=== PATIENT | female | born 1945 | race Caucasian/White ===

== ENCOUNTER 2020-03-10 16:06 | Emergency (ER) | payer MEDICARE, SELFPAY ==
--- NOTE | ~2020-03-10 | XR_ITS ---
EXAMINATION: XR chest 1V portable INDICATION: Numbness of the bilateral extremities TECHNIQUE: Portable AP chest at 1729 hours COMPARISON: 05/24/2019 FINDINGS: The lungs are free of acute opacities. There is no pleural effusion or pneumothorax. The ca rdiomediastinal silhouette is normal. IMPRESSION: 1. No acute cardiopulmonary abnormality. Reviewed, dictated and finalized at location A.
--- NOTE | ~2020-03-10 | CT_ITS ---
EXAMINATION: CT brain wo con INDICATION: Numbness and tingling of the extremities COMPARISON: 05/10/2018 TECHNIQUE: Standard unenhanced head CT. The dose-length product (DLP) was 605.33 mGy-cm. The mA was a djusted according to patient size. Iterative reconstruction technique was employed. FINDINGS: There is no acute intraparenchymal hemorrhage. No evidence of mass lesion. No evidence of a cute infarction. There is mild periventricular and subcortical hypodensity probably related to small vessel ischemic disease. There is mild prominence of the sulci and ventricles related to cerebral atr ophy. Intracranial calcified cerebral atherosclerosis is noted. There are no extra-axial collections. There is no mass effect or midline shift. The orbits and soft tissues are unremarkable. The visuali zed sinuses and mastoid air cells are well aerated. IMPRESSION: 1. No acute intracranial abnormality. 2. Age related findings. Reviewed, dictated and finalized at location A.
[2020-03-10 16:19] VITALS: BP 125/65; PULSE 84; RESP 16; TEMP 36.8; O2SAT 100
--- NOTE | 2020-03-10 16:24 | ECG_ITS ---
Measurements Intervals [place] Rate: 66 P: 22 WI: 171 QRS: 111 QRSD: 130 T: 30 QT: 458 QTc: 481 Interpretive Statements SINUS RHYTHM RIGHT AXIS DEVIATION RIGHT BUNDLE BRANCH BLOCK ABNORMAL ECG Electronically Signed On 03-11-2020 6:38:15 CDT by Ramiro Heath D.O.
[2020-03-10 16:39] LABS: Basophils Percent Auto 0.4 % (0.2-1.2); Eosinophils Absolute Auto 0.2 K/mm3 (0-0.3); Eosinophils Percent Auto 2.7 % (0-4.4); Hematocrit 33.8 % (37.0-47.0); Hemoglobin 11.1 g/dL (12.0-15.0); Immature Granulocyte Absolute 0.02 K/mm3 (0.00-0.031); Immature Granulocyte Percent A 0.4 % (0-0.5); Lymphocytes Absolute Auto 0.96 K/mm3 (0.9-3.2); Lymphocytes Percent Auto 17.4 % (18.3-44.2); Mean Corpuscular HGB Conc 32.8 g/dl (32-36); Mean Corpuscular Hemoglobin 32.1 pg (26-34); Mean Corpuscular Volume 97.7 fl (80-100); Mean Platelet Volume 9.4 fl (7.4-10.4); Monocytes Absolute Auto 0.6 K/mm3 (0.1-0.6); Monocytes Percent Auto 10.9 % (2.6-8.5); Neutrophils Absolute Auto 3.8 K/mm3 (1.3-6.7); Neutrophils Percent Auto 68.2 % (45.5-73.1); Platelet Count Result 285 k/mm3 (150-375); Red Blood Count 3.46 M/mm3 (4.2-5.4); Red Cell Distribution Width 14.4 % (11.5-14.5); White Blood Count 5.5 K/mm3 (4.5-10.0)
[2020-03-10 16:50] LABS: Partial Thromboplastin Time 27.2 SECONDS (22.3-36.8)
[2020-03-10 16:53] LABS: Anion Gap 8 mmol/L (8-16); Blood Urea Nitrogen 17 mg/dL (7-17); Calcium 5.9 mg/dL (8.4-10.2); Carbon Dioxide 29 mmol/L (22-30); Chloride 102 mmol/L (98-107); Estimated CRCL calculation 29 ml/min; Estimated Glomerular Filt Rate 29; Glucose 150 mg/dL (65-105); Potassium 4.5 mmol/L (3.4-5.0); Sodium 139 mmol/L (137-145)
[2020-03-10 17:05] LABS: Troponin I < 0.012 ng/mL (0.000-0.034)
[2020-03-10 19:29] VITALS: BP 135/70; PULSE 77; RESP 18; O2SAT 98
[2020-03-10 19:30] VITALS: BP 135/70; PULSE 86; RESP 18; O2SAT 97
--- NOTE | 2020-03-10 19:44 | ED.NEUROSD ---
HPI - Neuro Symptoms/Deficit General Chief Complaint: Neuro Symptoms/Deficit Stated Complaint: tingling in arms and legs since yesterday Time Seen by Provider: 03/10/20 19:17 History of Present Illness HPI Narrative: Patient is a 74-year-old female who presents ER with numbness and tingling. Patient has been having numbness and hzql-fjg-[id number] sensation to her arms and legs as well as numb intermittently her back for the last 2 days. Constantly patient had a injection for osteoporosis to increase calcium absorption 4 days ago. Patient has had no focal weakness or spasms. Symptoms are worse when she sits down. She is found no alleviating factors. She does take calcium supplementation. No fevers or chills or sweats. No slurred speech. Related Data Home Medications Medication Instructions Recorded Confirmed amlodipine 5 mg tablet 5 mg PO DAILY 06/04/19 08/10/19 atorvastatin 10 mg tablet 10 mg PO DAILY 06/04/19 08/10/19 levothyroxine 112 mcg tablet 112 mcg PO DAILY 06/04/19 08/10/19 metformin 500 mg tablet 500 mg PO DAILY 06/04/19 08/10/19 Allergies Allergy/AdvReac Type Severity Reaction Status Date / Time propoxyphene Allergy Mild FLU LIKE Verified 08/10/19 11:11 SYMPTOMS sulfamethizole Allergy Unknown Rash Verified 08/10/19 11:11 trimethoprim Allergy Unknown Rash Verified 08/10/19 11:11 Review of Systems Review of Systems: All systems reviewed & are unremarkable except as noted in HPI and below Constitutional: Constitutional: Denies chills, Denies fever(s) and Denies weakness ENT: Denies nasal congestion and Denies sore throat Cardiovascular: Cardiovascular: Denies chest pain and Denies radiating jaw, neck or arm pain Respiratory: Respiratory: Denies cough and Denies dyspnea Gastrointestinal: Gastrointestinal: Denies abdominal pain, Denies nausea and Denies vomiting Neurologic: Denies dizziness, Denies headache(s), Denies focal weakness and Reports numbness PMF Past Medical History Medical History (Updated 03/10/20 @ 21:47 by Zbigniew Farmer MD) Anemia, unspecified Arm fracture Arthritis Chronic back pain Chronic kidney disease with symptom management only, stage 3 (moderate) DDD (degenerative disc disease) Ductal carcinoma in situ (DCIS) of right breast Gastrostomy in place GERD (gastroesophageal reflux disease) HTN (hypertension) Hypothyroid Left-sided chest wall pain Malignant neoplasm of lower-outer quadrant of left breast of female, estrogen receptor negative Ovarian cyst Pancreatitis Pericarditis Post-menopausal Postoperative hypothyroidism Primary osteoarthritis involving multiple joints Thrombocytosis Thyroid cancer Type 2 diabetes mellitus without complication, without long-term current use of insulin Surgical History Surgical History (Updated 03/05/20 @ 16:07 by Nisha Glover APN-C) H/O local excision of skin lesion H/O total thyroidectomy History of arthroscopic knee surgery Bilateral History of bunionectomy of both great toes History of cholecystectomy History of partial hysterectomy Previous back surgery Social History Social History (Updated 08/10/19 @ 11:13 by Therese Leong) Smoking status: Never smoker Second hand tobacco smoke exposure: No Alcohol intake: never Substance use: never Substance use type: does not use Gender identity (if verbalized by the patient): Female Exam Narrative: Exam Narrative: GENERAL: Well-appearing, well-nourished, and in no acute distress. HEAD: Normocephalic, atraumatic. CHEST: Clear to auscultation. No respiratory distress. HEART: Regular rate and rhythm. Normal peripheral pulses. ABDOMEN: Soft, nontender, nondistended. EXTREMITIES: Normal range of motion. No edema. SKIN: Warm, dry, no rash. NEURO: No focal sensory deficits. Alert and oriented x3. PSYCH: Normal mood and affect. Course Course Emergency Course: Patient's tingling has resolved after receiving IV calcium gluconate. Patient will follow-up
[2020-03-10] MEDS: CALCIUM GLUCONATE 1,000 MG/10 ML VIAL 1000 MG IV PUSH (19:47)
--- NOTE | 2020-03-10 20:53 | PC.NURSE ---
pt resting on stretcher in NAD at this time. all questions/concerns addressed. vSS, rr even and unlabored. will continue to monitor pt for baseline status changes.
[2020-03-10 20:55] VITALS: BP 130/70; PULSE 72; RESP 18; O2SAT 99
[2020-03-10 22:52] VITALS: BP 124/70; PULSE 72; RESP 20; O2SAT 100
[2020-03-11 06:13] LABS: Glucose Point of Care 147 (65-105)
== END 2020-03-10 22:53 | disposition home or self-care (01) ==
PROVIDERS: Emergency Medicine; Emergency Provider Emergency Medicine; PCP Family Medicine
DX: E83.51 Hypocalcemia (principal); R20.2 Paresthesia of skin; D64.9 Anemia, unspecified; M19.90 Unspecified osteoarthritis, unspecified site; E11.22 Type 2 diabetes mellitus with diabetic chronic kidney disease; I12.9 Hypertensive chronic kidney disease with stage 1 through stage 4 chronic kidney disease, or unspecified chronic kidney disease; N18.30 Chronic kidney disease, stage 3 unspecified; Z79.84 Long term (current) use of oral hypoglycemic drugs; K21.9 Gastro-esophageal reflux disease without esophagitis; Z85.3 Personal history of malignant neoplasm of breast; E89.0 Postprocedural hypothyroidism; Z85.850 Personal history of malignant neoplasm of thyroid; I45.10 Unspecified right bundle-branch block
CPT/HCPCS: 36415; 70450; 71045; 80048; 82948; 84484; 85025; 85610; 85730; 93005; 96374; 99284; J0610

== ENCOUNTER → 2020-06-19 07:59 | Outpatient (CLI) | payer MEDICARE, SELFPAY ==
--- NOTE | ~2020-06-19 | XR_ITS ---
EXAMINATION:XR_[id number]_CR DATE: 06/19/2020 08:16 INDICATION: Neck pain TECHNIQUE: AP, lateral, lateral swimmers and odontoid views of the cervical spine are provided. COMPARISON: None FINDINGS: The bones are osteopenic which limits sensitivity for fracture although none is seen. The o dontoid is intact. The vertebral body heights are maintained. There is severe loss of intervertebral disc space height at C5-6 and C6-7. There is severe multilevel facet and uncovertebral joint osteoart hritis. Prevertebral soft tissues are normal. IMPRESSION: 1. Severe cervical spondylosis without acute findings, sensitivity limited by osteopenia. Reviewed, dictated and finalized at location A. 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 Severe cervical spondylosis without acute findings, sensitivity limited by o steopenia.
== END ==
PROVIDERS: PCP Family Medicine; Visit Provider Physician Assistant
DX: M47.892 Other spondylosis, cervical region (principal)
CPT/HCPCS: 72040

== ENCOUNTER → 2020-07-31 15:44 | Outpatient (CLI) | payer MEDICARE, SELFPAY ==
--- NOTE | ~2020-07-31 | XR_ITS ---
EXAMINATION: XR chest 2V EXAM DATE: 07/31/2020 16:01 INDICATION: R05 - Cough . TECHNIQUE: Frontal and lateral projections of the chest obtained and reviewed. Comparison is made to prior examination from 03/10/2020. FINDINGS: Left upper lobe granuloma. The lungs are otherwise clear. There are no pleural effusions. The cardiomediastinal silhouette is within normal limits. There is no pneumothorax suspected. The bones and soft tissues are unremarkable. IMPRESSION: No acute cardiopulmonary findings. Reviewed, dictated and finalized at location B. 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
== END ==
PROVIDERS: PCP Family Medicine; Visit Provider Physician Assistant
DX: R05 Cough (principal)
CPT/HCPCS: 71046

== ENCOUNTER 2021-01-08 00:20 | Day surgery (SDC) | payer MEDICARE, SELFPAY ==
[2020-12-26 13:33] VITALS: BMI 32.3
[2021-01-08 06:51] VITALS: BMI 32.2
[2021-01-08 06:54] VITALS: BP 109/67; PULSE 79; RESP 15; TEMP 35.8; O2SAT 100
[2021-01-08] MEDS: LACTATED RINGERS 1,000 ML 150 ML IV CONT (07:00)
[2021-01-08 07:06] LABS: Glucose Point of Care 99 mg/dl (65-105)
--- NOTE | 2021-01-08 07:11 | PM.HPGS ---
History of Present Illness History of Present Illness Consent: Risks, benefits, and alternatives have been discussed and questions answered. Patient agrees to proceed with procedure. Chief complaint: hx of colon polyps Narrative: Halima Griffith is a 75 year old female referred for colon cancer screening. She does have a history of polyps Review of Systems Review of Systems: All systems reviewed & are unremarkable except as noted in HPI and below PMFSH Past Medical History Medical History Anemia, unspecified Arm fracture Arthritis Chronic back pain Chronic kidney disease with symptom management only, stage 3 (moderate) Chronic kidney disease, stage 3 unspecified DDD (degenerative disc disease) Ductal carcinoma in situ (DCIS) of right breast Gastrostomy in place GERD (gastroesophageal reflux disease) HTN (hypertension) Hypothyroid Left-sided chest wall pain Malignant neoplasm of lower-outer quadrant of left breast of female, estrogen receptor negative Ovarian cyst Pancreatitis Pericarditis Post-menopausal Postoperative hypothyroidism Primary osteoarthritis involving multiple joints Thrombocytosis Thyroid cancer Type 2 diabetes mellitus without complication, without long-term current use of insulin Surgical History Surgical History H/O local excision of skin lesion H/O total thyroidectomy History of arthroscopic knee surgery Bilateral History of bunionectomy of both great toes History of cholecystectomy History of partial hysterectomy Previous back surgery Family History Family History Mother Hypertension Sibling Hypertension Family history of coronary artery disease Father Family history of diabetes mellitus in first degree relative Social History Social History Smoking status: Never smoker Second hand tobacco smoke exposure: No Alcohol intake: never Substance use: never Substance use type: does not use Living arrangements: with family Gender identity (if verbalized by the patient): Female Spiritual care concerns: No Meds Home Medications and Allergies Home Medications Medication Instructions Recorded Confirmed Type atorvastatin 10 mg tablet 10 mg PO DAILY 06/04/19 01/08/21 History levothyroxine 112 mcg tablet 88 mcg PO DAILY 06/04/19 01/08/21 History acyclovir 400 mg tablet 400 mg PO DAILY 03/14/20 01/08/21 History anastrozole 1 mg tablet 1 mg PO DAILY 03/14/20 01/08/21 History biotin 10,000 mcg capsule 10,000 mcg PO DAILY 03/14/20 01/08/21 History cholecalciferol (vitamin D3) 50 50 mcg PO DAILY 03/14/20 01/08/21 History mcg (2,000 unit) capsule folic acid 1 mg tablet 1 mg PO DAILY 03/14/20 01/08/21 History gabapentin 100 mg capsule 100 mg PO TID 03/14/20 01/08/21 History methotrexate sodium 2.5 mg tablet 2.5 mg PO 3XW tablet 03/14/20 01/08/21 History losartan 50 mg tablet 50 mg PO DAILY #90 tablet 11/06/20 01/08/21 Rx calcitriol 0.5 mcg PO DAILY 12/26/20 01/08/21 History calcium carbonate-vitamin D3 1 cap PO TID 12/26/20 01/08/21 History cyanocobalamin (vitamin B-12) 500 mcg PO DAILY 12/26/20 01/08/21 History [Vitamin B-12] ferrous sulfate 325 mg PO DAILY 12/26/20 01/08/21 History multivit with min-folic acid 1 tablet PO DAILY 12/26/20 01/08/21 History [Adult One Daily Multivitamin] Allergies Allergy/AdvReac Type Severity Reaction Status Date / Time propoxyphene Allergy Mild FLU LIKE Verified 01/08/21 06:50 SYMPTOMS sulfamethizole Allergy Unknown Rash Verified 01/08/21 06:50 trimethoprim Allergy Unknown Rash Verified 01/08/21 06:50 Vital Signs Vital Signs - 24 hr 01/08/21 06:54 Temperature 35.8 C L Pulse Rate 79 Respiratory Rate 15 Blood Pressure 109/67 Pulse Oximetry 100 Exam Resp: Auscultation: clear to auscultation bilatera
--- NOTE | 2021-01-08 07:41 | WPDANESEPPF ---
Anes - Initial Pre Proc Eval Procedure: Operation Date: 01/08/21 08:00 Proposed Procedures p Screening Colonoscopy - Al Escobar MD Date/Time: 01/08/21 07:41 Surgeon: Al Escobar MD Pre Op Diagnosis: hx of colon polyps Patient Data Age: 75 Gender: F Height: 1.68 m Weight: 90.5 kg Last Vital Signs Temp 35.8 C L 01/08/21 06:54 Pulse 79 01/08/21 06:54 Resp 15 01/08/21 06:54 BP 109/67 01/08/21 06:54 Pulse Ox 100 01/08/21 06:54 Allergies Allergy/AdvReac Type Severity Reaction Status Date / Time propoxyphene Allergy Mild FLU LIKE Verified 01/08/21 06:50 SYMPTOMS sulfamethizole Allergy Unknown Rash Verified 01/08/21 06:50 trimethoprim Allergy Unknown Rash Verified 01/08/21 06:50 Home Medications Medication Instructions Recorded Confirmed Type atorvastatin 10 mg tablet 10 mg PO DAILY 06/04/19 01/08/21 History levothyroxine 112 mcg tablet 88 mcg PO DAILY 06/04/19 01/08/21 History acyclovir 400 mg tablet 400 mg PO DAILY 03/14/20 01/08/21 History anastrozole 1 mg tablet 1 mg PO DAILY 03/14/20 01/08/21 History biotin 10,000 mcg capsule 10,000 mcg PO DAILY 03/14/20 01/08/21 History cholecalciferol (vitamin D3) 50 50 mcg PO DAILY 03/14/20 01/08/21 History mcg (2,000 unit) capsule folic acid 1 mg tablet 1 mg PO DAILY 03/14/20 01/08/21 History gabapentin 100 mg capsule 100 mg PO TID 03/14/20 01/08/21 History methotrexate sodium 2.5 mg tablet 2.5 mg PO 3XW tablet 03/14/20 01/08/21 History losartan 50 mg tablet 50 mg PO DAILY #90 tablet 11/06/20 01/08/21 Rx calcitriol 0.5 mcg PO DAILY 12/26/20 01/08/21 History calcium carbonate-vitamin D3 1 cap PO TID 12/26/20 01/08/21 History cyanocobalamin (vitamin B-12) 500 mcg PO DAILY 12/26/20 01/08/21 History [Vitamin B-12] ferrous sulfate 325 mg PO DAILY 12/26/20 01/08/21 History multivit with min-folic acid 1 tablet PO DAILY 12/26/20 01/08/21 History [Adult One Daily Multivitamin] Laboratory Tests 01/08/21 07:03 POC Capillary Glucose 99 mg/dl mg/dl (65-105) Patient hx anesthesia problems: none Family hx anesthesia problems: none PMFSH Past Medical History Medical History Anemia, unspecified Arm fracture Arthritis Chronic back pain Chronic kidney disease with symptom management only, stage 3 (moderate) Chronic kidney disease, stage 3 unspecified DDD (degenerative disc disease) Ductal carcinoma in situ (DCIS) of right breast Gastrostomy in place GERD (gastroesophageal reflux disease) HTN (hypertension) Hypothyroid Left-sided chest wall pain Malignant neoplasm of lower-outer quadrant of left breast of female, estrogen receptor negative Ovarian cyst Pancreatitis Pericarditis Post-menopausal Postoperative hypothyroidism Primary osteoarthritis involving multiple joints Thrombocytosis Thyroid cancer Type 2 diabetes mellitus without complication, without long-term current use of insulin Surgical History Surgical History H/O local excision of skin lesion H/O total thyroidectomy History of arthroscopic knee surgery Bilateral History of bunionectomy of both great toes History of cholecystectomy History of partial hysterectomy Previous back surgery Family History Family History Mother Hypertension Sibling Hypertension Family history of coronary artery disease Father Family history of diabetes mellitus in first degree relative Social History Social History Smoking status: Never smoker Second hand tobacco smoke exposure: No Alcohol intake: never Substance use: never Substance use type: does not use Living arrangements: with family Gender identity (if verbalized by the patient): Female Spiritual care concerns: No Anes - Eval Final PreProcedure Day of Procedure 01/08/21 07:
[2021-01-08 08:27] VITALS: BP 89/55; PULSE 78; RESP 19; O2SAT 100
[2021-01-08 08:37] VITALS: BP 101/45; PULSE 72; RESP 19; O2SAT 100
[2021-01-08 08:47] VITALS: BP 98/61; PULSE 70; RESP 22; O2SAT 100
== END 2021-01-08 09:00 | disposition home or self-care (01) ==
PROVIDERS: PCP Family Medicine; Visit Provider Internal Medicine Gastroenterology
PROC: 0DJD8ZZ Inspection of Lower Intestinal Tract, Via Natural or Artificial Opening Endoscopic (ICD-10-PCS; CPT 45378; principal; 2021-01-08 08:00)
DX: Z12.11 Encounter for screening for malignant neoplasm of colon (principal); K64.8 Other hemorrhoids; K57.30 Diverticulosis of large intestine without perforation or abscess without bleeding; Z86.010 Personal history of colon polyps; I12.9 Hypertensive chronic kidney disease with stage 1 through stage 4 chronic kidney disease, or unspecified chronic kidney disease; N18.30 Chronic kidney disease, stage 3 unspecified; E11.22 Type 2 diabetes mellitus with diabetic chronic kidney disease; K21.9 Gastro-esophageal reflux disease without esophagitis; E89.0 Postprocedural hypothyroidism; D64.9 Anemia, unspecified; Z85.3 Personal history of malignant neoplasm of breast; Z85.850 Personal history of malignant neoplasm of thyroid; E66.9 Obesity, unspecified; Z68.32 Body mass index [BMI] 32.0-32.9, adult
CPT/HCPCS: G0105; 82948; J2704; J7120

== ENCOUNTER 2021-03-18 15:21 | Outpatient (CLI) | payer MEDICARE, SELFPAY ==
--- NOTE | ~2021-03-18 | XR_ITS ---
XR sacroiliac joints min 3V DATE: 03/18/2021 16:19 INDICATION: Rheumatoid arthritis TECHNIQUE: AP and oblique views COMPARISON: None FINDINGS: Diffuse osteopenia. The sacroiliac joints are intact, without evidence of fracture or dislocation. There is mild degenera tive change. No erosive change or ankylosis is evident. The pubic symphysis is intact. There is dextroscoliosis and multilevel degenerative disc disease of the lumbar spine and evidence of lumbar laminectomy. Bilateral hip osteoarthritis. Calcified uterine fibroid. IMPRESSION: Diffuse osteopenia Mild degenerative change at the sacroiliac joints Reviewed, dictated and finalized at Location A. Reviewed, dictated and finalized at location B.
--- NOTE | ~2021-03-18 | XR_ITS ---
XR foot RT standing 2V DATE: 03/18/2021 16:20 INDICATION: Arthritis TECHNIQUE: Standing AP and lateral views COMPARISON: 10/17/2018 right foot FINDINGS: Status post bunionectomy. Diffuse osteopenia. There is osteoarthritic change at the first metatarsophalangeal and multiple interphalangeal joints. Mild plantar calcaneal enthesopathy. No fracture or dislocation, periosteal reaction or bone destruction. IMPRESSION: Status post bunionectomy Osteopenia Polyarticular osteoarthritis Mild plantar calcaneal enthesopathy Reviewed, dictated and finalized at location B.
--- NOTE | ~2021-03-18 | XR_ITS ---
XR hand BI arthritis min 3V DATE: 03/18/2021 16:19 INDICATION: Unspecified osteoarthritis TECHNIQUE: 5 views of each hand COMPARISON: 10/17/2018 left and right hand FINDINGS: Right hand: Again noted is a plate and screws along the anterior aspect of the distal radius. There is diffuse osteopenia. Polyarticular osteoarthritis is noted involving the triscaphe joint, particularly the first carpometa carpal and second metacarpophalangeal joints. There is also involvement of multiple interphalangeal j oints especially the interphalangeal joint of the first digit and the distal interphalangeal joints a nd proximal interphalangeal joints of the second and third digits. There is involvement of all interp halangeal joints. No fracture or dislocation, periosteal reaction or bone destruction or erosive change is noted. No ch ondrocalcinosis. Left hand: Diffuse osteopenia. There is severe osteophytic change at the first carpometacarpal joint and osteoarthritis involving th e metacarpophalangeal and interphalangeal joints, especially the distal interphalangeal joints and se cond metacarpophalangeal joint. No fracture or dislocation, periosteal reaction or bone destruction. No erosive change. No chondrocal cinosis. IMPRESSION: Polyarticular osteoarthritic arthritis Plate and screws along distal right anterior radius Reviewed, dictated and finalized at location B.
--- NOTE | ~2021-03-18 | XR_ITS ---
XR foot LT standing 2V DATE: 03/18/2021 16:19 INDICATION: Arthritis TECHNIQUE: Standing AP and lateral views COMPARISON: 11/17/2018 left foot FINDINGS: There is hallux valgus and lateral subluxation at the first metacarpophalangeal joint. Stat us post bunionectomy. There is a radiopaque wire suture of the proximal phalanx of the first digit. Diffuse osteopenia. There is mild plantar calcaneal enthesopathy without associated erosive change or periostitis. No fracture or dislocation, periosteal reaction or bone destruction is detected. IMPRESSION: No significant change since 10/17/2018 Reviewed, dictated and finalized at location B.
== END 2021-03-18 15:22 | disposition home or self-care (01) ==
LOC: ANHIMG 15:26
PROVIDERS: PCP Family Medicine; Visit Provider Internal Medicine
DX: M06.9 Rheumatoid arthritis, unspecified (principal); M19.071 Primary osteoarthritis, right ankle and foot; M77.31 Calcaneal spur, right foot; M19.041 Primary osteoarthritis, right hand; M19.042 Primary osteoarthritis, left hand; M85.88 Other specified disorders of bone density and structure, other site; M53.3 Sacrococcygeal disorders, not elsewhere classified
CPT/HCPCS: 72202; 73130; 73620

== ENCOUNTER → 2021-05-21 13:12 | Outpatient (CLI) | payer MEDICARE, SELFPAY ==
--- NOTE | ~2021-05-21 | MR_ITS ---
EXAMINATION: MR lumbar spine wo con DATE: 05/21/2021 14:07 INDICATION: Low back pain. Lumbar radiculopathy. TECHNIQUE: Magnetic resonance imaging (MRI) of the lumbar spine was performed without intravenous con trast. Sequences included sagittal T2-weighted FSE, sagittal STIR FSE, sagittal T1-weighted FSE, and axial T2-weighted FSE. COMPARISON: Lumbar spine MRI 11/15/2018 FINDINGS: There is 21 degrees dextroscoliosis of lumbar spine. There is 3 mm retrolisthesis of L2 on L3. Vertebral body heights are normal. There is severely decreased disc height at L1-L2 with endplate remodeling. There is severely decreased disc height at L2-L3 and L3-L4 with interbody fusion. There is mildly decreased disc height at L4-L5 and severely decreased disc height at L5-S1 with endplate re modeling. The distal spinal cord signal intensity is normal. The conus medullaris is at T12. The foll owing disc levels are specifically discussed: L1-L2: The disc is bulging and has an annular fissure. There is mild bilateral facet joint osteoarthr itis. There is mild right and moderate left neural foraminal stenosis. There is mild central canal st enosis. L2-L3: There is mild bilateral facet joint hypertrophy. There is mild right and moderate left neural foraminal stenosis. There is no central canal stenosis. L3-L4: There is ankylosis of the facet joints with moderate hypertrophy. There is severe right and mo derate left neural foraminal stenosis. There is no central canal stenosis. L4-L5: The disc is bulging and has an annular fissure. There is severe right and moderate left facet joint osteoarthritis. There is mild bilateral neural foraminal stenosis. There is mild central canal stenosis. L5-S1: The disc is bulging and has an annular fissure. There is mild bilateral facet joint osteoarthr itis. There is mild right neural foraminal stenosis. There is mild central canal stenosis. IMPRESSION: 1. Severe lumbar spondylosis, worsened at L1-L2 from 11/15/18. 2. Lumbar dextroscoliosis. Reviewed, dictated and finalized at location A. 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
== END ==
PROVIDERS: PCP Family Medicine; Visit Provider Family Medicine
DX: M54.16 Radiculopathy, lumbar region (principal); M43.06 Spondylolysis, lumbar region; M41.86 Other forms of scoliosis, lumbar region
CPT/HCPCS: 72148

== ENCOUNTER 2021-06-15 08:59 | Outpatient (CLI) | payer MEDICARE, SELFPAY ==
--- NOTE | ~2021-06-15 | XR_ITS ---
EXAMINATION: XR shoulder RT min 2V DATE: 06/15/2021 09:23 INDICATION: Right shoulder pain. TECHNIQUE: 4 views of right shoulder were obtained. COMPARISON: None. FINDINGS: Bone alignment is normal. No fracture. There is mild osteoarthritis of glenohumeral joint a nd acromioclavicular joint. There is mild calcific tendinitis of the rotator cuff. IMPRESSION: 1. Mild polyarticular osteoarthritis. 2. Mild calcific tendinitis of the rotator cuff. Reviewed, dictated and finalized at location B. ALL OPERATOR
--- NOTE | ~2021-06-15 | XR_ITS ---
EXAMINATION: XR cervical spine min 6V DATE: 06/15/2021 09:23 INDICATION: Neck pain. TECHNIQUE: 8 views of cervical spine including flexion and extension views were obtained. COMPARISON: Cervical spine radiographs 06/19/2020 FINDINGS: There is 7 degrees levocurvature of cervicothoracic spine. There is 2 mm anterolisthesis of C3 and C4 and 2 mm retrolisthesis of C4 on C5 and C5 on C6. No abnormal motion with flexion or exten gertrudis. Vertebral body heights are normal. There is mildly decreased disc height at C4-C5 and severely decreased disc height at C5-C6 and C6-C7. There is multilevel facet joint osteoarthritis, severe on t he right from C3-C4 through C5-C6 and on the left at C3-C4 and C4-C5. There is likely ankylosis of th e facet joints at C2-C3. There is multilevel uncovertebral joint osteoarthritis, severe bilaterally a t C5-C6 and C6-C7. There is mild central canal stenosis at C4-C5, C5-C6, and C6-C7. IMPRESSION: 1. Severe cervical spondylosis. 2. Ankylosis of the facet joints at C2-C3. Reviewed, dictated and finalized at location B. 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
== END 2021-06-15 09:00 ==
PROVIDERS: PCP Family Medicine; Visit Provider Nurse Practitioner Adult Health
DX: M47.892 Other spondylosis, cervical region (principal); M19.011 Primary osteoarthritis, right shoulder; M75.31 Calcific tendinitis of right shoulder
CPT/HCPCS: 72052; 73030

== ENCOUNTER → 2021-07-01 01:51 | Outpatient (CLI) | payer MEDICARE, SELFPAY ==
[2021-07-01 19:37] LABS: SARS-CoV-2 RNA PCR Positive
== END ==
PROVIDERS: PCP Family Medicine; Visit Provider Nurse Practitioner Family
DX: U07.1 COVID-19 (principal)
CPT/HCPCS: C9803; U0003; U0005

== ENCOUNTER → 2021-11-16 10:23 | Outpatient (CLI) | payer MEDICARE, SELFPAY ==
--- NOTE | ~2021-11-16 | XR_ITS ---
XR hip RT min 2V DATE: 11/16/2021 10:41 INDICATION: Right hip pain TECHNIQUE: AP and lateral views of right hip COMPARISON: None FINDINGS: There is periarticular spurring of the femoral head and acetabulum, consistent with moderat e right hip osteoarthritis. No fracture, dislocation, avascular necrosis or bone destruction is detected. IMPRESSION: Moderate right hip osteoarthritis Reviewed, dictated and finalized at location A.
== END ==
PROVIDERS: PCP Family Medicine; Visit Provider Family Medicine
DX: M16.11 Unilateral primary osteoarthritis, right hip (principal)
CPT/HCPCS: 73502

== ENCOUNTER 2021-12-16 08:49 | Outpatient (CLI) | payer MEDICARE, SELFPAY | END 2021-12-16 08:50 | disposition home or self-care (01) | LOC: ANHAUDIO 08:50 | PROVIDERS: PCP Family Medicine; Visit Provider Family Medicine | DX: H91.90 Unspecified hearing loss, unspecified ear (principal) | CPT/HCPCS: 92557; 92567 ==

== ENCOUNTER 2021-12-17 07:41 | Outpatient (CLI) | payer MEDICARE, SELFPAY ==
--- NOTE | ~2021-12-17 | US_ITS ---
EXAMINATION: US right upper quadrant DATE: 12/17/2021 08:48 INDICATION: Abnormal liver function tests. TECHNIQUE: Multiple grayscale and Doppler ultrasound images of the abdomen were obtained. COMPARISON: None FINDINGS: The visualized portions of the head, body, and tail of the pancreas are normal. Scattered c alcifications in the liver are consistent with old granulomatous disease. There is normal flow in demetrice n portal vein. The gallbladder is absent. The common duct is normal and measures 5 mm. IMPRESSION: 1. No etiology for abnormal liver function tests. Reviewed, dictated and finalized at location A.
== END 2021-12-17 07:42 ==
LOC: MICIMG 07:41
PROVIDERS: PCP Family Medicine; Visit Provider Family Medicine
DX: R79.89 Other specified abnormal findings of blood chemistry (principal)
CPT/HCPCS: 76705

== ENCOUNTER 2022-01-06 16:50 | Outpatient (CLI) | payer MEDICARE, SELFPAY ==
[2022-01-06 17:26] LABS: Basophils Percent Auto 0.3 % (0.2-1.2); Eosinophils Absolute Auto 0.1 K/mm3 (0-0.3); Eosinophils Percent Auto 1.4 % (0-4.4); Hematocrit 38.6 % (37.0-47.0); Hemoglobin 12.7 g/dL (12.0-15.0); Immature Granulocyte Absolute 0.02 K/mm3 (0.00-0.031); Immature Granulocyte Percent A 0.3 % (0-0.5); Lymphocytes Absolute Auto 1.02 K/mm3 (0.9-3.2); Lymphocytes Percent Auto 16.1 % (18.3-44.2); Mean Corpuscular HGB Conc 32.9 g/dl (32-36); Mean Corpuscular Hemoglobin 32.4 pg (26-34); Mean Corpuscular Volume 98.5 fl (80-100); Mean Platelet Volume 9.3 fl (7.4-10.4); Monocytes Absolute Auto 0.5 K/mm3 (0.1-0.6); Monocytes Percent Auto 7.6 % (2.6-8.5); Neutrophils Absolute Auto 4.7 K/mm3 (1.3-6.7); Neutrophils Percent Auto 74.3 % (45.5-73.1); Platelet Count Result 294 k/mm3 (150-375); Red Blood Count 3.92 M/mm3 (4.2-5.4); Red Cell Distribution Width 14.4 % (11.5-14.5); White Blood Count 6.3 K/mm3 (4.5-10.0)
[2022-01-06 17:34] LABS: Alanine Aminotransferase 41 U/L (6-35); Albumin Level 4.6 g/dL (3.5-5.1); Alkaline Phosphatase 92 U/L (38-126); Amylase 147 U/L (30-110); Anion Gap 13 mmol/L (8-16); Aspartate Amino Transferase 40 U/L (14-36); Bilirubin,Total 0.6 mg/dL (0.2-1.3); Blood Urea Nitrogen 44 mg/dL (7-17); Calcium 10.4 mg/dL (8.4-10.2); Carbon Dioxide 20 mmol/L (22-30); Chloride 96 mmol/L (98-107); Estimated Glomerular Filt Rate 26; Glucose 100 mg/dL (65-110); Lipase 333 U/L (23-300); Sodium 129 mmol/L (137-145)
[2022-01-06 17:40] LABS: Appearance Urine Clear (Clear); Bilirubin Urine Negative (Negative); Blood Urine Negative (Negative); Color Urine Yellow (Yellow); Glucose Urine UA Negative (Negative); Ketones Urine Negative (Negative); Leukocyte Esterase Ur Trace LEU/UL (NEGATIVE); Nitrate Urine Negative (Negative); Protein Urine Negative (Negative); Urobilinogen Urine 0.2 mg/dL (<2.0); pH Urine 5.5 (5.0-9.0)
[2022-01-06 17:49] LABS: Bacteria Urine Trace /hpf; Mucus Urine Rare /lpf; RBC Urine 0-2 /hpf (0-2)
[2022-01-06 17:50] LABS: Add Urine Microscopic? YES
== END 2022-01-06 16:51 | disposition home or self-care (01) ==
LOC: ANHLAB 16:54
PROVIDERS: PCP Family Medicine; Visit Provider Physician Assistant
DX: Z90.12 Acquired absence of left breast and nipple (principal); R10.9 Unspecified abdominal pain; R11.2 Nausea with vomiting, unspecified; Z87.19 Personal history of other diseases of the digestive system; N18.30 Chronic kidney disease, stage 3 unspecified; D64.9 Anemia, unspecified
CPT/HCPCS: 36415; 80053; 81001; 82150; 83690; 85025; 87086

== ENCOUNTER 2022-01-08 10:22 | Outpatient (CLI) | payer MEDICARE, SELFPAY ==
[2022-01-08 10:56] LABS: Alanine Aminotransferase 34 U/L (6-35); Albumin Level 4.5 g/dL (3.5-5.1); Alkaline Phosphatase 81 U/L (38-126); Anion Gap 8 mmol/L (8-16); Aspartate Amino Transferase 39 U/L (14-36); Bilirubin,Total 0.6 mg/dL (0.2-1.3); Blood Urea Nitrogen 39 mg/dL (7-17); Calcium 9.9 mg/dL (8.4-10.2); Carbon Dioxide 26 mmol/L (22-30); Chloride 101 mmol/L (98-107); Estimated Glomerular Filt Rate 23; Glucose 109 mg/dL (65-110); Potassium 4.2 mmol/L (3.4-5.0); Sodium 135 mmol/L (137-145)
== END 2022-01-08 10:23 | disposition home or self-care (01) ==
LOC: ANHLAB 10:23
PROVIDERS: PCP Family Medicine; Visit Provider Physician Assistant
DX: E87.1 Hypo-osmolality and hyponatremia (principal)
CPT/HCPCS: 36415; 80053

== ENCOUNTER → 2022-03-11 12:44 | Outpatient (CLI) | payer MEDICARE, SELFPAY ==
--- NOTE | ~2022-03-11 | XR_ITS ---
XR hip LT min 3V w AP pelvis 03/11/2022 13:08 Indication: Left hip pain. Procedure: 3 views left hip Comparison: 07/21/2017 Findings: No fracture, subluxation or dislocation. There is moderate osteoarthritis of the right hip and mild on the left. Osteopenia. Pelvic rings are intact. There are coarse calcifications in the pel vis, consistent with calcified uterine fibroids. Impression: 1: Osteoarthritis of the hips, right greater than left. Reviewed, dictated and finalized at location A. Impression: 1: Osteoarthritis of the hips, right greater than left.
== END ==
PROVIDERS: PCP Family Medicine; Visit Provider Nurse Practitioner
DX: M16.0 Bilateral primary osteoarthritis of hip (principal)
CPT/HCPCS: 73502

== ENCOUNTER 2022-04-01 08:27 | Outpatient (CLI) | payer MEDICARE, SELFPAY ==
--- NOTE | ~2022-04-01 | MR_ITS ---
EXAMINATION: MR hip LT wo con DATE: 04/01/2022 09:25 INDICATION: Left hip pain TECHNIQUE: Magnetic resonance imaging (MRI) of the left hip was performed without intravenous contra st. Sequences included full-field axial PD-weighted FS FSE and T1-weighted FSE, coronal of the pelvis with PD-weighted FS FSE, T2-weighted FSE and T1-weighted FSE, small field of view of the left hip w ith axial PD-weighted FS FSE, sagittal PD-weighted FS FSE, coronal PD-weighted FS FSE and coronal T2 weighted FSE. Additional radial T1-weighted FGR oriented orthogonal to the acetabular rim were obtai tanya for evaluation of the labrum. COMPARISON: Left hip radiographs dated 03/11/2022 FINDINGS: Bones/labrum/cartilage: Alignment is normal. There is marked marrow edema in the left supra-acetabular region surrounding a a nondisplaced linear low signal intensity fracture line which extends obliquely across the roof of th e left acetabulum. No evident fracture gap or step off along the articular cortex. Laterally the frac ture line appears to involve the articular cortex extending approximately 2 cm cephalad to the elizabeth superior rim of the acetabulum. The majority of the cephalad margin of the fracture line ends within the intramedullary space without encountering any additional cortices and not appearing to result in a physically separate fracture fragment. No evident involvement of the pubic rami or the anterior or posterior columns. Marrow signal is otherwise normal. No other fractures. No pathologic marrow replac ing process. Severe lumbar spondylosis with anterior and posterior fusion at L3-L4. Mild left hip ost eoarthritis with partial thickness cartilage loss resulting in mild nonuniform joint space narrowing at the posterior and superomedial aspect of the joint space. Diffuse degeneration of the left acetabu lar labrum with marginal osteophytes along the posterior superior rim of the left acetabulum which pa rtially replaces the labral tissue. Fluid: Symmetric physiologic amount of fluid within both hip joints. Soft tissues: There is fatty atrophy of a small portion of the anterior right gluteus minimus muscle belly and mode rate fatty atrophy of the anterior two thirds of the left gluteus medius minimus muscle belly. Otherw ise normal and symmetric muscle bulk and signal in the pelvis and visualized proximal thighs. Mild te ndinopathy without tear at the bilateral gluteus medius tendons, bilateral proximal hamstring tendons and left gluteus minimus tendon. Is a cluster of a few low signal intensity calcified uterine fibroi ds, the largest measuring 2.1 cm. Limited evaluation of visceral organs of the pelvis is otherwise un remarkable. No pathologically enlarged pelvic/inguinal lymphadenopathy. IMPRESSION: 1. Nondisplaced left likely incomplete insufficiency fracture involving the cortex at the roof the le ft acetabulum and overlying medullary space.. Reviewed, dictated and finalized at location A. IMPRESSION: 1. Nondisplaced left likely incomplete insufficiency fracture involving the cor lb at the roof the left acetabulum and overlying medullary space..
== END 2022-04-01 08:28 ==
LOC: MICIMG 08:28
PROVIDERS: PCP Family Medicine; Visit Provider Nurse Practitioner
DX: S32.492A Other specified fracture of left acetabulum, initial encounter for closed fracture (principal); X58.XXXA Exposure to other specified factors, initial encounter
CPT/HCPCS: 73721

== ENCOUNTER → 2022-09-22 14:03 | Outpatient (CLI) | payer MEDICARE, SELFPAY ==
--- NOTE | ~2022-09-22 | XR_ITS ---
EXAMINATION: XR ankle RT 2V, XR ankle LT 2V, XR foot LT 2V, XR foot RT 2V DATE: 09/22/2022 15:10 INDICATION: Multiple joint pain TECHNIQUE: 1. Weight bearing anteroposterior and lateral view of the left ankle were obtained. 2. Weight bearing dorsoplantar and lateral views of the left foot were obtained. 3. Weight bearing anteroposterior and lateral view of the right ankle were obtained. 4. Weight bearing dorsoplantar and lateral views of the right foot were obtained. COMPARISON: 03/18/2021 FINDINGS: No fracture identified either foot or ankle. Bilateral mild pes planus and hindfoot valgus. Postopera tive change of bilateral bunionectomies with corticated osteotomies at the medial heads of both the l eft and right first metatarsals. There is bilateral mild hallux valgus, on the left with additional l ateral subluxation of the first proximal phalanx relative to the head of the first metatarsal. There has also been a prior likely realignment osteotomy with cerclage wire fixation at the medial side of the left first proximal phalanx. Osteotomy at the head of the left second proximal phalanx likely fo r hammertoe correction. The bilateral fourth toes are clawed. Hammertoe opacities of the bilateral third toes. There appears to be mild dorsal subluxation at the right second metatarsophalangeal joint and crossover deformity w ith the right second toe extending over the dorsum of the great toe. Polyarticular osteoarthritis, mo derate at the left first metatarsophalangeal joint and a few of the predominantly distal interphalang eal joints. Mild osteoarthritis involving the majority the remaining joints of the bilateral feet and ankles Bilateral small plantar calcaneal spurs. No erosions. The soft tissues are unremarkable. No a nkle joint effusions. IMPRESSION: 1. Relatively symmetric mild bilateral pes planus and hindfoot valgus. 2. Bilateral mild hallux valgus with postoperative change of prior bilateral bunionectomies and likel y realignment osteotomy at the left first proximal phalanx. 3. Malalignment of the a few bilateral toes which include clot toes, hammer toes and crossover deform ity of the right first and second toes. 4. Mild to moderate polyarticular osteoarthritis at the bilateral feet and ankles most prominent at t he left first metatarsophalangeal joint and a few of the interphalangeal joints. Reviewed, dictated and finalized at location A. IMPRESSION: 1. Relatively symmetric mild bilateral pes planus and hindfoot valgus. 2. Bilateral mild hallux valgus with postoperative change of prior bilateral bu nionectomies and likely realignment osteotomy at the left first proximal phalan x. 3. Malalignment of the a few bilateral toes which include clot toes, hammer toe s and crossover deformity of the right first and second toes. 4. Mild to moderate polyarticular osteoarthritis at the bilateral feet and ankl es most prominent at the left first metatarsophalangeal joint and a few of the interphalangeal joints. IMPRESSION: 1. Relatively symmetric mild bilateral pes planus and hindfoot valgus. 2. Bilateral mild hallux valgus with postoperative change of prior bilateral bu nionectomies and likely realignment osteotomy at the left first proximal phalan x. 3. Malalignment of the a few bilateral toes which include clot toes, hammer toe s and crossover deformity of the right first and second toes. 4. Mild to moderate polyarticular osteoarthritis at the bilateral feet and ankl es most prominent at the left first metatarsophalangeal joint and a few of the interphalangeal joints. IMPRESSION: 1. Relatively symmetric mild bilateral pes planus and hindfoot valgus. 2. Bilateral mild hallux valgus with postoperative change of prior megan
--- NOTE | ~2022-09-22 | XR_ITS ---
XR hip BI wo pelvis DATE: 09/22/2022 15:10 INDICATION: Bilateral hip pain TECHNIQUE: AP and lateral views of each hip COMPARISON: None FINDINGS: There is moderate right and mild left hip osteoarthritis including degenerative spurring of the femoral heads, right greater than left. No fracture or dislocation, avascular necrosis or bone destruction of either hip is evident. Alignment is preserved at the pubic symphysis and sacroiliac joints. IMPRESSION: Moderate right and mild left hip osteoarthritis Reviewed, dictated and finalized at location B.
--- NOTE | ~2022-09-22 | XR_ITS ---
XR hand RT 2V DATE: 09/22/2022 15:10 INDICATION: Multiple joint pain TECHNIQUE: AP and lateral views of right hand COMPARISON: None FINDINGS: There is diffuse osteopenia. There is a volar plate along the distal radius, secured by multiple anteroposteriorly directed screws . Prominent osteophytic change at the first carpometacarpal joint osteophytic change of the metacarpoph alangeal joints, most prominently at the second. There is osteoporotic change at the interphalangeal joints, particularly the distal interphalangeal j oints, joint space narrowing and prominent spurring. No erosive change is noted. No fracture, dislocation, periosteal reaction or bone destruction or chondrocalcinosis is detected. IMPRESSION: Polyarticular osteoarthritis Osteopenia Anterior radial plate Reviewed, dictated and finalized at location B.
--- NOTE | ~2022-09-22 | XR_ITS ---
XR hand LT 2V DATE: 09/22/2022 15:10 INDICATION: Bilateral hand pain TECHNIQUE: AP and lateral views of left hand COMPARISON: None FINDINGS: There is osteopenia. There is prominent osteophytic change at the first carpometacarpal joint. There is osteoarthritic sheeba nge at the metacarpophalangeal joints, greatest at the second metacarpophalangeal joint, in addition to more prominent osteoarthritic change at the interphalangeal joints, particularly distal interphala ngeal joints, joint space narrowing and prominent spurring. No fracture, dislocation, periosteal reaction or bone destruction. No erosive change or chondrocalcin osis. IMPRESSION: Polyarticular osteoarthritis Osteopenia Reviewed, dictated and finalized at location B.
== END ==
PROVIDERS: PCP Family Medicine; Visit Provider Internal Medicine Rheumatology
DX: M25.59 Pain in other specified joint (principal); M15.9 Polyosteoarthritis, unspecified; M85.89 Other specified disorders of bone density and structure, multiple sites; M21.42 Flat foot [pes planus] (acquired), left foot; M21.41 Flat foot [pes planus] (acquired), right foot; M20.12 Hallux valgus (acquired), left foot; M20.11 Hallux valgus (acquired), right foot; Z98.890 Other specified postprocedural states
CPT/HCPCS: 73120; 73521; 73600; 73620

== ENCOUNTER → 2023-07-04 14:57 | Outpatient (CLI) | payer MEDICARE, SELFPAY ==
--- NOTE | ~2023-07-04 | XR_ITS ---
EXAM: XR hip RT 2V w AP pelvis DATE: 07/04/2023 15:19 HISTORY: M25.551 - Pain in right hip . COMPARISON: 09/22/2022. FINDINGS: Degenerative changes in the lumbar spine. Mild degenerative change in the bilateral SI ashanti nts, pubic symphysis, and left hip. Moderate right hip osteoarthritis. Scattered pelvic and hip enthe sopathy. Calcified fibroids. IMPRESSION: Moderate right hip osteoarthritic arthritis. Reviewed, dictated and finalized at location K. 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
== END ==
PROVIDERS: PCP Family Medicine; Visit Provider Family Medicine
DX: M16.11 Unilateral primary osteoarthritis, right hip (principal)
CPT/HCPCS: 73502

== ENCOUNTER 2023-07-25 12:15 | Outpatient (CLI) | payer MEDICARE, SELFPAY ==
--- NOTE | ~2023-07-25 | XR_ITS ---
EXAM: XR_CERV2-3V_CR DATE: 07/25/2023 12:37 HISTORY: M54.2- Cervicalgia 3wks, right side hurts most, no known inj . COMPARISON: 06/19/2020. FINDINGS: Craniocervical association and atlantoaxial joint are aligned. Moderate degenerative berrios e at the atlantodental interval. 2 mm anterolisthesis at C3-4. 2 mm retrolisthesis at C5-6. 4 mm ante rolisthesis at C6-7. Decreased mineralization. Multilevel disc space narrowing and marginal osteophyt osis, moderate at C4-5 and C5-6. Multilevel severe facet hypertrophy and sclerosis. Calcified left up per lobe granuloma. Dental implants. IMPRESSION: Multilevel stable grade 1 listheses. Multilevel moderate degenerative disc disease. Multi level severe facet arthropathy. Reviewed, dictated and finalized at location K. 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 Multilevel moderate degenerati ve disc disease. Multilevel severe facet arthropathy.
== END 2023-07-25 12:16 | disposition home or self-care (01) ==
PROVIDERS: PCP Family Medicine; Visit Provider Family Medicine
DX: M43.12 Spondylolisthesis, cervical region (principal); M47.812 Spondylosis without myelopathy or radiculopathy, cervical region; M50.30 Other cervical disc degeneration, unspecified cervical region
CPT/HCPCS: 72040

== ENCOUNTER 2023-09-23 11:48 | Emergency (ER) | payer MEDICARE, SELFPAY ==
--- NOTE | ~2023-09-23 | XR_ITS ---
EXAM: XR hip RT 2V w AP pelvis DATE: 09/23/2023 13:14 HISTORY: FALL YESTERDAY, PAIN LAT HIP . COMPARISON: 07/04/2023. FINDINGS: Decreased mineralization. Scoliosis and multilevel degenerative disc disease in the lumbar spine. No fracture or dislocation. Mild left and moderate right hip osteoarthritis. Mild degenerativ e changes in the bilateral SI joints and pubic symphysis. Suggestion of a curvilinear lucency in the right femoral head. Cortical irregularity in the right sacral ala may represent degenerative change f rom partial sacralization or an old fracture, stable. Scattered pelvic and hip enthesopathy. Calcifie d fibroids. IMPRESSION: No acute fracture or dislocation the pelvis or right hip. Curvilinear right femoral head lucency may represent a focus of AVN. This could be confirmed with non emergent outpatient MRI of the pelvis. Reviewed, dictated and finalized at [facility] [place]. IMPRESSION: No acute fracture or dislocation the pelvis or right hip. Curvilinear right femoral head lucency may represent a focus of AVN. This could be confirmed with nonemergent outpatient MRI of the pelvis.
--- NOTE | ~2023-09-23 | XR_ITS ---
EXAM: XR hand RT min 3V, XR wrist RT min 3V DATE: 09/23/2023 13:15 (accession [id number]), 09/23/2023 13:14 (accession [id number]) HISTORY: trauma FALL YESTERDAY . COMPARISON: None available. FINDINGS: Decreased mineralization. Oblique lucency with dorsal cortical step-off at the radial styl oid. No lytic or blastic lesion. Moderate scattered degenerative changes. Uncomplicated appearing scr ew and plate fixation of the volar aspect of the distal right radius. No erosion or periosteal change . Soft tissue swelling about the wrist. IMPRESSION: Minimally displaced radial styloid fracture, with soft tissue swelling, likely acute, par ticularly if accompanied by acute pain/tenderness. Reviewed, dictated and finalized at location K. IMPRESSION: Minimally displaced radial styloid fracture, with soft tissue swell ing, likely acute, particularly if accompanied by acute pain/tenderness.
--- NOTE | ~2023-09-23 | XR_ITS ---
EXAMINATION: XR chest 2V Exam Date/Time: 09/23/2023 13:00 CDT HISTORY: trauma, right rib pain, FALL YESTERDAY Comparison: 07/31/2020, report only. RESULT: Lines, tubes, and devices: Cholecystectomy clips. Lungs and pleura: Calcified left upper lung granuloma. Senescent change. Otherwise clear. Cardiomediastinal silhouette: Unremarkable. Other: No acute osseous or upper abdominal finding. IMPRESSION: No acute cardiopulmonary process. Reviewed, dictated and finalized at location K.
--- NOTE | ~2023-09-23 | XR_ITS ---
EXAM: XR lumbar spine 2-3V DATE: 09/23/2023 13:14 HISTORY: fall YESTERDAY, PAIN LOW BACK INTO HIPS . COMPARISON: 04/18/2013, report only. FINDINGS: Decreased mineralization. Moderate scoliosis. 5 nonrib-bearing lumbar-type vertebral kell s. Normal vertebral body alignment. Multilevel severe degenerative disc disease. Multilevel severe fa cet arthropathy. Lucency in the right sacral ala with cortical step-off. IMPRESSION: No definite fracture or traumatic malalignment in the lumbar spine although sensitivity is decreased by osteopenia, scoliosis, and degenerative changes. Possible right sacral alar fracture, consider CT of the pelvis for further evaluation. Reviewed, dictated and finalized at location K. IMPRESSION: No definite fracture or traumatic malalignment in the lumbar spine although sen sitivity is decreased by osteopenia, scoliosis, and degenerative changes. Possible right sacral alar fracture, consider CT of the pelvis for further eval uation.
--- NOTE | ~2023-09-23 | XR_ITS ---
EXAM: XR thoracic spine 3V DATE: 09/23/2023 13:15 HISTORY: fall YESTERDAY . COMPARISON: 06/15/2021, report only. FINDINGS: Decreased mineralization. Thoracic scoliosis. Vertebral body alignment intact. Vertebral pedro dy heights preserved. Mild multilevel degenerative disc disease. No traumatic malalignment or fractur e. Visualized lung parenchyma is clear. 2 mm anterolisthesis at C3-4 and a 3 mm anterolisthesis at C4 -5. IMPRESSION: No acute fracture or traumatic malalignment detected in the thoracic spine. Incidental note of a 3 mm anterolisthesis at C4-5, previously described as a retrolisthesis, correlat e for cervical pain/tenderness. Reviewed, dictated and finalized at location K. IMPRESSION: No acute fracture or traumatic malalignment detected in the thoracic spine. Incidental note of a 3 mm anterolisthesis at C4-5, previously described as a re trolisthesis, correlate for cervical pain/tenderness.
[2023-09-23 11:51] VITALS: BP 154/73; PULSE 88; RESP 18; TEMP 36.6; O2SAT 99
--- NOTE | 2023-09-23 11:55 | ECG_ITS ---
SEE SCANNED COPY FOR CONFIRMED REPORT MTDD
[2023-09-23 12:16] VITALS: BP 136/78; PULSE 72; RESP 17; O2SAT 100
--- NOTE | 2023-09-23 12:45 | ED.FALL ---
HPI - Fall General Chief Complaint: Fall Stated Complaint: fall Time Seen by Provider: 09/23/23 11:59 History of Present Illness HPI Narrative: 78-year-old female presenting to the emergency department for evaluation for injuries from a ground level fall yesterday. Patient reports she was walking her dog on a leash prior to the store yesterday and the tender scared her dog causing her to have a ground level fall. Patient did injure her right wrist right hip, patient does report pain in her mid to lower back and patient is also complaining right-sided rib pain. Patient has prior history of a wrist fracture on the right. Related Data Home Medications Medication Instructions Recorded Confirmed levothyroxine 112 mcg tablet 88 mcg PO DAILY 06/04/19 09/28/23 acyclovir 400 mg tablet 400 mg PO DAILY 03/14/20 09/28/23 biotin 10,000 mcg capsule 10,000 mcg PO DAILY 03/14/20 09/28/23 cholecalciferol (vitamin D3) 50 50 mcg PO DAILY 03/14/20 09/28/23 mcg (2,000 unit) capsule calcitriol 0.5 mcg capsule 0.5 mcg PO DAILY 12/26/20 09/28/23 cyanocobalamin (vitamin B-12) 500 500 mcg PO DAILY 12/26/20 09/28/23 mcg tablet (Vitamin B-12) multivitamin with minerals-folic 1 tablet PO DAILY 12/26/20 09/28/23 acid 0.4 mg tablet (Adult One Daily Multivitamin) acetaminophen 650 mg 650 mg PO Q12H 05/13/22 09/28/23 tablet,extended release (Tylenol Arthritis Pain) denosumab 60 mg/mL subcutaneous 60 mg subcut [id number] 05/13/22 09/28/23 syringe (Prolia) dulaglutide 3 mg/0.5 mL 3 mg subcut WEEKLY 11/22/22 09/28/23 subcutaneous pen injector (Trulicity) Allergies Allergy/AdvReac Type Severity Reaction Status Date / Time propoxyphene Allergy Mild FLU LIKE Verified 07/12/23 10:29 SYMPTOMS sulfamethizole Allergy Unknown Rash Verified 07/12/23 10:29 trimethoprim Allergy Unknown Rash Verified 07/12/23 10:29 Review of Systems Review of Systems: All systems reviewed & are unremarkable except as noted in HPI and below PMFSH Past Medical History Medical History Anemia, unspecified Arm fracture Arthritis Cervical spondylosis Chronic back pain Chronic kidney disease with symptom management only, stage 3 (moderate) Chronic kidney disease, stage 3 unspecified Chronic kidney disease, stage 4 (severe) DDD (degenerative disc disease) DM renal manif type II Ductal carcinoma in situ (DCIS) of right breast Gastrostomy in place Generalized osteoarthritis of multiple sites GERD (gastroesophageal reflux disease) Greater trochanteric bursitis of right hip HTN (hypertension) Hypothyroid Insufficiency fracture of pelvis Left superior acetabulum Left-sided chest wall pain Malignant neoplasm of lower-outer quadrant of left breast of female, estrogen receptor negative Obesity Obesity Ovarian cyst Pancreatitis Pericarditis Post-menopausal Postoperative hypothyroidism Primary osteoarthritis involving multiple joints Thrombocytosis Thyroid cancer Type 2 diabetes mellitus without complication, without long-term current use of insulin Surgical History Surgical History H/O local excision of skin lesion H/O repair of rotator cuff H/O total thyroidectomy History of arthroscopic knee surgery Bilateral History of breast surgery History of bunionectomy of both great toes History of cholecystectomy History of partial hysterectomy History of total knee replacement Bilateral Previous back surgery Family History Family History Mother Hypertension Depression Sibling Hypertension Family history of coronary artery disease Diabetes mellitus Father Family history of diabetes mellitus in first degree relative Family history of alcoholism Grandparent Diabetes mellitus Social History Social History Smoking status: N
[2023-09-23] MEDS: HYDROcodone/acetaminophen (*CRX) 5-325 MG TABLET 1 TAB PO (13:25)
[2023-09-23 13:26] VITALS: BP 136/78; PULSE 61; RESP 17; O2SAT 99
[2023-09-23 14:49] VITALS: BP 154/58; PULSE 64; RESP 19; O2SAT 100
== END 2023-09-23 15:38 | disposition home or self-care (01) ==
PROVIDERS: Emergency Provider Emergency Medicine; PCP Family Medicine
DX: S52.511A Displaced fracture of right radial styloid process, initial encounter for closed fracture (principal); I12.9 Hypertensive chronic kidney disease with stage 1 through stage 4 chronic kidney disease, or unspecified chronic kidney disease; E11.22 Type 2 diabetes mellitus with diabetic chronic kidney disease; N18.4 Chronic kidney disease, stage 4 (severe); E66.9 Obesity, unspecified; Z68.30 Body mass index [BMI] 30.0-30.9, adult; E89.0 Postprocedural hypothyroidism; M19.90 Unspecified osteoarthritis, unspecified site; K21.9 Gastro-esophageal reflux disease without esophagitis; Z86.2 Personal history of diseases of the blood and blood-forming organs and certain disorders involving the immune mechanism; Z85.3 Personal history of malignant neoplasm of breast; Z85.850 Personal history of malignant neoplasm of thyroid; Z79.85 Long-term (current) use of injectable non-insulin antidiabetic drugs; I45.2 Bifascicular block; R94.31 Abnormal electrocardiogram [ECG] [EKG]; W18.39XA Other fall on same level, initial encounter; Y93.K1 Activity, walking an animal
CPT/HCPCS: 29125; 71046; 72072; 72100; 73110; 73130; 73502; 93005; 99284; A4565; A9270

== ENCOUNTER 2023-10-18 07:41 | Outpatient (CLI) | payer MEDICARE, SELFPAY ==
--- NOTE | ~2023-10-18 | MR_ITS ---
EXAMINATION: MR pelvis wo con DATE: 10/18/2023 08:21 INDICATION: Idiopathic aseptic necrosis of unspecified bone. Left hip pain. TECHNIQUE: Magnetic resonance imaging (MRI) of the pelvis was performed without intravenous contrast. COMPARISON: Pelvis and right hip radiographs 09/23/2023, pelvis and left hip MRI 04/01/2022 FINDINGS: There is lumbar dextroscoliosis and severe spondylosis. There is interbody fusion at L3-L4. There is severe right hip osteoarthritis and moderate left hip osteoarthritis. No osteonecrosis. There is smal l right and moderate-sized left hip joint effusions. There is mild tendinopathy of right hamstring or igin and moderate tendinopathy of left hamstring origin. The iliopsoas tendons are normal. There is a partial tear of right gluteus minimus tendon. There is mild right gluteus medius tendinopathy. There is mild left gluteus minimus tendinopathy and severe left gluteus medius tendinopathy. There is mode rate bilateral trochanteric bursitis. IMPRESSION: 1. No osteonecrosis. 2. Severe right hip osteoarthritis and moderate left hip osteoarthritis. 3. Small right and moderate-sized left hip joint effusions. Reviewed, dictated and finalized at location A.
== END 2023-10-18 07:42 ==
LOC: MICIMG 07:42
PROVIDERS: PCP Family Medicine; Visit Provider Physician Assistant
DX: M16.0 Bilateral primary osteoarthritis of hip (principal); M25.451 Effusion, right hip; M25.452 Effusion, left hip
CPT/HCPCS: 72195

== ENCOUNTER 2024-03-14 10:16 | Outpatient (CLI) | payer MEDICARE, SELFPAY ==
--- NOTE | ~2024-03-14 | XR_ITS ---
Right Knee Technique: AP, lateral, and sunrise views were obtained. Clinical History: Status post fall Findings: No fracture or dislocation is seen. Right knee arthroplasty in place, without evidence of h ardware complication. Soft tissues are unremarkable. No joint effusion is seen. Impression: No acute abnormality. Right knee arthroplasty. Reviewed, dictated and finalized at location . Impression: No acute abnormality. Right knee arthroplasty.
== END 2024-03-14 10:17 | disposition home or self-care (01) ==
LOC: MICIMG 10:17
PROVIDERS: PCP Family Medicine; Visit Provider Physician Assistant Medical
DX: Z96.651 Presence of right artificial knee joint (principal); Z91.81 History of falling
CPT/HCPCS: 73562

== ENCOUNTER 2025-02-07 08:39 | Outpatient (CLI) | payer MEDICARE, SELFPAY ==
--- NOTE | ~2025-02-07 | XR_ITS ---
XR lumbar spine 6V w bending 02/07/2025 10:07 Indication: Back pain Procedure: 7 views lumbar spine Comparison: 09/23/2023 Findings: There is disc narrowing at all lumbar levels. There is dextroscoliosis. No acute fracture or traumatic malalignment. Osteopenia. There are cholecystectomy clips. Sacral foramen are symmetric. Right hip arthroplasty partially visualized. There are calcified uterine fibroids in the pelvis. Impression: 1: No acute abnormality of the lumbar spine. 2: Severe lumbar spondylosis with dextroscoliosis. Reviewed, dictated and finalized at location O. Impression: 1: No acute abnormality of the lumbar spine. 2: Severe lumbar spondylosis with dextroscoliosis.
--- NOTE | ~2025-02-07 | XR_ITS ---
EXAMINATION: SACRUM/COCCYX DATE: 02/07/2025 10:07 INDICATION: Tail bone pain and low back pain after fall TECHNIQUE: Three views sacrum/coccyx FINDINGS: 09/23/2023 There is no displaced fracture of the sacrum. The coccyx demonstrates overall normal morphology without acute angulation.There are calcified uterine fibroids in the pelvis. There is a right total hip arthroplasty. There is partial sacralization of L5 on the right. IMPRESSION: 1. No acute displaced osseous abnormality of the sacrum. Suspicion for occult or nondisplaced sacral fracture can either be evaluated with CT or MRI. 2. Grossly normal morphology to the coccyx without acute angulation. However, due to the wide range of normal variation of the coccyx, acute injury would be best evaluated by clinical examination and patient's symptoms. Reviewed, dictated and finalized at location O.
--- NOTE | ~2025-02-07 | MR_ITS ---
EXAMINATION: MR lumbar spine wo con DATE: 02/07/2025 09:13 INDICATION: Spondylosis without myelopathy or radiculopathy TECHNIQUE: Magnetic resonance imaging (MRI) of the lumbar spine was performed without intravenous contrast. Sequences included sagittal T2-weighted FSE, sagittal T2-weighted FS FSE, sagittal T1-weighted FSE, and axial T2-weighted FSE. COMPARISON: None FINDINGS: 30 degrees lumbar dextroscoliosis. 3 mm retrolisthesis L5 on S1. And L3 laminectomy and partial L2 and L4 laminectomies. Vertebral body heights are normal. Severe disc height loss at L1-L2 through L3-L4 with solid osseous fusion across the left sides of the L2-L3 and L3-L4 disc spaces. There are fibrov ascular degenerative endplate changes at L1-L2. There is additional severe right-sided disc height loss on L5-S1. Mild right-sided disc height loss at L4- L5. The conus medullaris terminates at T12-L1. There is normal signal in the caudal spinal cord. Paravertebral soft tissues are unremarkable. The following disc levels are specifically discussed: T12-L1: The disc does not extend beyond the endplate margin. There is mild left and moderate right facet joint osteoarthritis. There is mild bilateral neural foraminal stenosis. There is no central canal stenosis. L1-L2: Disc is bulging. There is mild right and moderate left facet joint osteoarthritis. There is moderate left and mild right neural foraminal stenosis. There is mild central canal stenosis including moderate narrowing of the left lateral recess. L2-L3: The disc does not extend beyond the endplate margin with partial fusion of the disc space. There is moderate bilateral facet joint osteoarthritis with suggestion of developing fusion across the left facet joint. There is moderate bilateral neural foraminal stenosis. There is mild central canal stenosis. L3-L4: The disc space is fused. The bilateral facet joints are fused with moderate hypertrophic changes. There is moderate bilateral neural foraminal stenosis. There is posterior decompression with no central canal stenosis. L4-L5: Small bilateral foraminal zone disc protrusions. There is hypertrophy of the ligamentum flavum. There is moderate left and severe right facet joint osteoarthritis. There is moderate right and mild to moderate left neural foraminal stenosis. There is mild to moderate central canal stenosis with narrowing of the left and right lateral recesses. L5-S1: The disc does not extend beyond the more posterior L5 endplate margin. There is mild to moderate left and moderate to severe right facet joint osteoarthritis. There is mild right neural foraminal stenosis. There is no central canal stenosis. IMPRESSION: 1. 30 degrees lumbar dextroscoliosis with severe spondylosis. 2. Anterior and posterior fusion at L2-L4 with posterior decompression with L3 laminectomy and partial laminectomies at L2 and L4. Reviewed, dictated and finalized at location A.
== END 2025-02-07 08:40 | disposition home or self-care (01) ==
LOC: MICIMG 08:40
PROVIDERS: PCP Family Medicine; Visit Provider Nurse Practitioner Adult Health
DX: M46.1 Sacroiliitis, not elsewhere classified (principal); M47.816 Spondylosis without myelopathy or radiculopathy, lumbar region; M54.9 Dorsalgia, unspecified; M48.061 Spinal stenosis, lumbar region without neurogenic claudication; Z98.890 Other specified postprocedural states; Z98.1 Arthrodesis status
CPT/HCPCS: 72114; 72148; 72220

== ENCOUNTER 2025-02-19 09:28 | Day surgery (SDC) | payer MEDICARE, SELFPAY ==
[2025-02-14 15:11] VITALS: BMI 31.1
--- NOTE | ~2025-02-19 | XR_ITS ---
XR fluoroscopy no charge Indication: Bilateral SI joint intra-articular steroid injection TECHNIQUE: Fluoroscopy used during Bilateral SI joint intra-articular steroid injection performed by [Chirag Knight MD] on 02/19/2025. 44 seconds of fluoroscopy time with a fluoroscopic images captured. FINDINGS: Correlate with procedure note. IMPRESSION: Fluoroscopy used during Bilateral SI joint intra-articular steroid injection. Reviewed, dictated and finalized at location O.
[2025-02-19 10:14] VITALS: BP 138/73; PULSE 66; RESP 16; TEMP 37; O2SAT 99
--- NOTE | 2025-02-19 10:36 | WPDHPUPDATE1 ---
History and Physical Update Update Date/Time: 02/19/25 10:36 History and Physical has been reviewed, including an updated exam of the patient. There are NO changes in the patient's condition. Risks, benefits, and alternatives have been discussed and questions answered. Patient agrees to proceed with procedure.
--- NOTE | 2025-02-19 10:37 | P.OP_ITS ---
Procedure Note - Detailed Date of Procedure 02/19/25 Pre-op Diagnosis sacroiliitis Post-op Diagnosis Same Procedure Performed Bilateral Sacroiliac Joint Steroid Injection under Fluoroscopic Guidance and with Contrast Control. Surgeon Chirag Knight MD Customer Marketing Assistant None Anesthesia Local Description of Procedure INFORMED CONSENT: Risks, benefits and alternatives to the procedure were discussed in detail with the patient who expressed explicit understanding and consent to proceed. Patient was informed verbally and in written form regarding the risks associated with the procedure including the low risk of serious infection, bleeding/bruising, allergic reaction, nerve or organ injury, paralysis, procedural site pain or discomfort, worsening pain and/or mobility, failure to treat and/or disfigurement. The patient expressed explicit understanding and consent to proceed. All materials required for the procedure were available prior to procedure start. Site and side were marked prior to procedure and confirmed in the presence of the patient. PROCEDURE IN DETAIL: The patient was brought to the procedural suite and placed in the prone position. Patient was made comfortable with use of pillows under the head/chest, hips and ankles. Skin overlying the injection site on the affected side(s) was prepared broadly with ChloraPrep applicator and draped in a sterile manner. Aseptic technique was used throughout. The right SI joint was identified in the AP view and contralateral oblique angulation with caudal tilt was utilized to optimize visualization of the inferior and medial joint line representing the posterior portion of the joint. Local anesthesia was established by infiltration with approximately 5 mL of 2% lidocaine via a 1-1/2 inch 27-gauge needle. A 22-gauge 3.5 inch Quincke spinal needle was advanced until the needle entered the inferior third of the joint space approximately 1cm cephalad from its most inferior point. In the AP view, 0.5 mL of Omnipaque 300 contrast medium was injected after negative aspiration for CSF, blood or other bodily fluid, showing appropriate intra-articular spread of contrast without evidence of intravascular, perineural or intrathecal placement. A 1.5 mL solution containing 5 mg of dexamethasone in 0.5% PF bupivacaine was injected after repeat negative aspiration. Appropriate spread of the injectate was confirmed with washout of previous injected contrast. No parasthesias were elicited. Needle was removed completely intact without difficulty. The same exact procedure was repeated for all remaining levels on the contralateral side, left SI joint, modified as necessary to accommodate for the new target location with identical findings/results and no evidence of complication. Images were saved and documented in the patient chart. Patient's skin was cleansed and sterile bandage applied. The patient tolerated the procedure well. The patient was transported to the recovery area in stable condition where they were observed for an appropriate amount of time prior to discharge, without evidence of complication. The patient was instructed to avoid excessive activity for the next 48 hours, including climbing and frequent use of stairs. Showers only for 48 hours. They were instructed not to drive or operate heavy machinery for 24 hours. They are to monitor for severe headaches, fevers, chills, night sweats, erythema/swelling at the site or any other signs of infection, bleeding/bruising, bowel or bladder changes as well as new pain, weakness or numbness in the upper or lower extremity. Should they notice these changes, they are instructed to call our office immediately or report directly to the nearest Emergency Department if no answer or if after posted office hours. COMPLICATIONS: None COMMENTS: None CONTRAST WASTED: 29mL Omnipaque 300. Complications No immediate complications Condition Stable Disposition Same day [facility] Billing Surgery - Charge Forward: Surgery Billing
[2025-02-19 11:02] VITALS: BP 149/68; PULSE 77; RESP 16; O2SAT 98
--- OUTSIDE RECORDS SUMMARY | 2025-02-19 11:03 | XMS_ITS | Encounter Summary ---
Author Organization [facility] Address [address] [place] [address] Phone Care Team Providers Care Body Shop Worker Name Role Phone Chari Montes MD Primary Care Provider [phone] Patt French Primary Care Provider UnavailPatt Snowden Primary Care Provider Unavaila Azael Barron MD Primary Care Provider Saran Martinez MD Unavailable Vashti Girard MD PhD Unavailable [phone] Sia White MD Unavailable [phone] Julia Jones LICENSING ANALYST Unavailable [phone] Paulette Schulz PhD Unavailable [phone] Encounter Details Date Type Department Care Team (Latest Contact Info) Description 03/30/2012 Orders Only [facility] Scanning, Provider Social History Tobacco Use Types Packs/Day Years Used Date Smoking Tobacco: Never Assessed Comments Unknown Sex and Gender Information Value Date Recorded Sex Assigned at Not on file 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 Gender Identity Not on file Sexual Orientation Not on file documented as of this encounter Plan of Treatment Not on file documented as of this encounter Procedures Procedure Name Priority Date/Time Associated Diagnosis Comments SCAN - PATHOLOGY 03/30/2012 documented in this encounter Results * SCAN - PATHOLOGY (03/30/2012) us Provider Scanning Final Result documented in this encounter Visit Diagnoses Not on filedocumented in this encounter Care Teams Body Shop Worker Relationship Specialty Start Date End Date Chari Montes MD [address] [address] PCP - General 08/23/11 02/02/17 Patt French [address] [address] PCP - General 06/05/17 02/01/18 Patt French [address] [address] PCP - General 02/03/17 06/04/17 Azael Schneider MD [address] [place] [address] PCP - General 02/02/18 Saran Martinez MD [address] [facility] [address] [place] [address] Radiation Oncologist Radiation Oncology 10/19/18 Aft, Vashti Mckinley MD PhD [address] [facility] [address] [place] [address] Surgeon Surgical Oncology 10/19/18 Sia White MD [address] [facility] [address] [place] [address] Surgeon Surgical Oncology 10/19/18 Julia Jones CNS [address] [facility] [address] [place] [address] Nurse Practitioner Certified Clinical Nurse Specialist 10/19/18 06/24/21 Paulette Schulz, PhD [address] [facility] [address] [place] [address] Nurse Practitioner Radiation Oncology 10/19/18 documented as of this encounter
--- OUTSIDE RECORDS SUMMARY | 2025-02-19 11:03 | XMS_ITS | Encounter Summary ---
Author Organization [facility] Address [address] [place] [address] Phone Care Team Providers Care Custom Seamstress Name Role Phone Azael Schneider MD Primary Care Provider Saran Martinez MD Unavailable AftVashti MD PhD Unavailable [phone] Sia White MD Unavailable [phone] Julia Jones [facility] Unavailable [phone] Paulette Schulz PhD Unavailable [phone] Encounter Details Date Type Department Care Team (Latest Contact Info) Description 04/25/2020 Orders Only [facility] Scanning, Provider Social History Tobacco Use Types Packs/Day Years Used Date Smoking Tobacco: Never Smokeless Tobacco: Never Alcohol Use Standard Drinks/Week Comments No 0 (1 standard drink = 0.6 oz pur e alcohol) Comments No Sex and Gender Information Value Date Recorded Sex Assigned at Not on file 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 Gender Identity Not on file Sexual Orientation Not on file documented as of this encounter Plan of Treatment Not on file documented as of this encounter Procedures Procedure Name Priority Date/Time Associated Diagnosis Comments SCAN - LABS 04/25/2020 documented in this encounter Results * SCAN - LABS (04/25/2020) us Provider Scanning Edited Result - Final documented in this encounter Visit Diagnoses Not on filedocumented in this encounter Care Teams Custom Seamstress Relationship Specialty Start Date End Date Azael Schneider MD [address] [place] [address] PCP - General 02/02/18 Saran Martinez MD [address] [place] [address] Radiation Oncologist Radiation Oncology 10/19/18 Aft, Vashti Mckinley MD PhD [address] [place] [address] Surgeon Surgical Oncology 10/19/18 Sia White MD [address] [place] [address] Surgeon Surgical Oncology 10/19/18 Julia Jones CNS [address] [place] [address] Nurse Practitioner Certified Clinical Nurse Specialist 10/19/18 06/24/21 Paulette Schulz, PhD [address] [place] [address] Nurse Practitioner Radiation Oncology 10/19/18 documented as of this encounter
--- OUTSIDE RECORDS SUMMARY | 2025-02-19 11:03 | XMS_ITS | Clinical Summary ---
Author Organization [facility] al Address [address] [place] [address] Care Team Providers Care Comic Book Writer Name Role Phone Azael Schneider MD Primary Care Provider Saran Martinez MD Unavailable Aft, Vashti Mckinley MD PhD Unavailable [phone] Sia White MD Unavailable [phone] Paulette Schulz PhD Unavailable [phone] Allergies Active Allergy Reactions Criticality Noted Date Comments Sven Inhibitors Cough Low 01/28/2021 Heparin Other (See comments) Low 08/02/2024 Lowered platelet count Propoxyphene Nausea & Vomiting Low 06/13/2018 Medications atorvastatin (LIPITOR) 10 mg tabletIndicat ions:hyperlip idemia Take 1 tablet (10 mg total) by mouth nightly Active ferrous sulfate 325 mg (65 mg of elemental iron) tabletIndicat ions:Iron Deficiency Anemia Take 1 tablet (325 mg total) by mouth daily with breakfast Active acyclovir (ZOVIRAX) 400 mg tabletIndicat ions:Prophyla xis, Medical,eye infection prevention 2018 Take 1 tablet (400 mg total) by mouth human resources professional before breakfast Active CALCIUM CITRATE ORALIndicatio ns:supplement Take 1 tablet by mouth 3 (three) times a day Active cholecalcifer ol (VITAMIN D-3) 2000 unit capsuleIndica tions:Vitamin D Deficiency,50 mcg (2000 unit) Take 1 capsule (2,000 Units total) by mouth human resources professional before breakfast Active cyclobenzapri ne HCl (FLEXERIL ORAL)Indicati ons:muscle spasms Take 1 tablet by mouth 3 (three) times a day as needed (muscle spasms) Active methotrexate 2.5 mg tabletIndicat ions:Rheumato id Arthritis Take 3 tablets (7.5 mg total) by mouth every 7 days sundays03/06/20 19 Active losartan (COZAAR) 50 mg tabletIndicat ions:hyperten gertrudis Take 1 tablet (50 mg total) by mouth human resources professional before breakfast 01/22/[address] (CYMBALTA) 30 mg capsuleIndica tions:Anxiety with Depression Take 2 capsules (60 mg total) by mouth nightly 04/18/20 23 Active pramipexole (MIRAPEX) 0.125 mg tabletIndicat ions:Restless Legs Syndrome Take 1 tablet (0.125 mg total) by mouth nightly at bedtime. 08/01/19 24 Active calcitRIOL (ROCALTROL) 0.25 mcg capsule TAKE 1 CAPSULE BY MOUTH EVERY DAY 90 capsule 3 10/06/19 24 Active Additional Information Patient taking differently: 0.25 mcg oral Daily (early AM), TAKE 1 CAPSULE BY MOUTH EVERY DAY,Indications: hypocalcemia, Informant: Self, Reported on 02/12/[address] (NexIUM) 40 mg capsuleIndica tions:Stress Ulcer Prophylaxis,r eflux Take 1 capsule (40 mg total) by mouth every evening 04/11/20 24 Active levothyroxine (SYNTHROID) 88 mcg tablet TAKE 1 TABLET BY MOUTH EVERY DAY 90 tablet 3 05/28/20 24 Active Additional Information Patient taking differently:88 mcg oralDaily (early AM), Indications: hypothyroidism, Informant: Self, Reported on 02/12/2025 oxyCODONE (ROXICODONE) 5 mg immediate release tabletIndicat ions:Pain Take 1 tablet (5 mg total) by mouth every 4 (four) hours as needed for pain (Breakthrough Pain) 30 tablet 08/28/19 25 Active traMADoL (ULTRAM) 50 mg tablet Take 1 tablet (50 mg total) by mouth every 8 (eight) hours as needed for pain 42 tablet 08/28/19 25 Active acetaminophen 500 mg capsuleIndica tions:Pain Take 2 capsules (1,000 mg total) by mouth every 8 (eight) hours 90 tablet 08/29/19 25 Active finasteride (PROSCAR) 5 mg tablet 10/12/19 25 Active oxyBUTYnin XL (DITROPAN-XL) 5 mg 24 hr tablet Take 1 tablet (5 mg total) by mouth daily 02/07/20 Active folic acid (FOLVITE) 1 mg tablet Take 1 tablet (1,000 mcg total) by mouth daily 12/18/19 25 Active semaglutide (Ozempic) 0.25 mg or 0.5 mg (2 mg/3 mL) pen injector injection sample 3 mL 02/13/20 25 Active semaglutide (OZEMPIC) 0.25 mg or 0.5 mg (2 mg/3 mL) pen injector injectionIndi cations:chron ic kidney disease associated with type 2 diabetes,type 2 diabetes mellitus Inject 0.5 mg weekly for Type 2 Diabetes 3 mL 3 02/13/20 25 Active dulaglutide (Trulicity) 4.5 mg/0.5 mL pen injectorIndic ations:Type 2 diabetes mellitus without complication, without long-term current use of insulin (HCC) INJECT 4.5 MG SUBCUTANEOUSLY EVERY 7 DAYS. Must schedule follow up appointment for future refills 6 mL 12/25/19 25 2024 Discontinued Active Problems Problem Noted Date Diagnosed Date S/P total right hip arthroplasty 08/27/2024 Primary osteoarthritis of right hip 07/19/2024 Right hip pain 07/19/2024 Primary hypertension 09/30/2022 Hypercalcemia 03/22/2021 Hirsutism 03/22/2021 Elevated creatine kinase 03/20/2021 History of breast cancer 02/23/2021 Stage 3b chronic kidney disease 01/28/2021 Rib pain on left side 05/15/2019 Encounter for follow-up surv eillance of ductal carcinoma in situ (DCIS) of breast 04/30/2019 Age-related osteoporosis wit hout current pathological fracture 04/30/2019 Papillary thyroid carcinoma (CMS/HCC) 01/08/2019 Assessment & Plan (01/08/2019 2:46 PM CDT): -T1NX papillary thyroid carcinoma status post 30 mCi of radioactive iodine on April 10, 2012. A followup scan in 2012 revealed persistent uptake in the thyroid bed and she received an additional 100 mCi of radioactive iodine on April 12, 2013. Negative total body scans in 2013 and 2014 and 12/2018 -thyroglobulin undetectable -surgical pathology from 2011 revealed papillary microcarcinoma in both lobes, well differentiated, classical type, negative surgical margins, no capsular, extrathyroidal or LV invasion; based on this, she has a low risk of recurrence Postoperative hypothyroidism 01/08/2019 Assessment & Plan (01/08/2019 2:46 PM CDT): -on levothyroxine 125 mcg daily; TSH elevated today because it is a thyrogen stimulated value -will repeat TSH and free T4 in about 6 weeks -TSH goal 0.5-2 Osteoporosis without current pathological fractu re 01/05/2019 Assessment & Plan (01/08/2019 1:34 PM CDT): -exacerbating by aromatase inhibitor therapy -will continue current calcium and vitamin D supplementation -we discussed that she needs antiresorptive therapy to prevent further bone loss and fractures but she needs to have dental work done first -will start Prolia after dental work is completed -we discussed the importance of weight bearing exercise Encounter for follow-up surveillance of breast c ancer 11/23/2018 Encounter to discuss treatment options 9 Chronic anemia 09/14/2018 Hyperlipidemia 09/14/2018 Thrombocytosis 09/14/2018 Ductal carcinoma in situ (DCIS) of left breast 1 Cancer Staging:Clinical stage from 03/13/2018:Stage 0(cTis (DCIS), cN0, cM0, ER+, KS+, HER2: Not Assessed) - Signed by Paulette Schulz, PhD on 10/19/2018 Pathologic stage from 08/31/2018:Stage 0(pTis (DCIS), pN0, cM0, ER+, KS+, HER2: Not Assessed) - Signed by Paulette Schulz, PhD on 10/19/2018 Type 2 diabetes mellitus without complication Resolved Problems Problem Noted Date Diagnosed Date Resolved Date Aromatase inhibitor use 08/05/202108/04 Hypocalcemia 03/28/2020 03/22/2021 Encounter for monitoring sumaya matase inhibitor therapy 01/05/2019 08/17/2023 Assessment & Plan (01/08/2019 1:35 PM CDT): -predisposes her to bone loss and fractures -management as above Encounters Date Type Department Care Team Description 02/12/2025 3:00 PM CDT Office Visit [facility] Medicine Endocrinology Metabolism and Lipid [address] [facility] 13th [place] [address] [place] [address] Samira Styles MD Type 2 diabetes mellitus without complication, without long-term current use of insulin (HCC) (Primary Dx); Osteoporosis without current pathological fracture, unspecified osteoporosis type 01/04/2025 11:00 AM CDT Clinical Support [facility] [address] [address] Osteoporosis without current pathological fracture, unspecified osteoporosis type (Primary Dx); Age-related osteoporosis without current pathological fracture 01/02/2025 Telephone [facility] [address] [address] Vicky Horne RN 12/31/2024 Orders Only [facility] Medicine Endocrinology Metabolism and Lipid [address] [place] [address] [place] [address] Samira Styles MD 12/31/2024 Orders Only [facility] Medicine Endocrinology Metabolism and Lipid [address] [place] [address] [place] [address] Samira Styles MD 12/31/2024 Orders Only [facility] Medicine Endocrinology Metabolism and Lipid [address] [place] [address] [place] [address] Samira Styles MD 12/31/2024 Orders Only [facility] Medicine Endocrinology Metabolism and Lipid [address] [place] [address] [place] [address] Samira Styles MD 12/31/2024 Orders Only [facility] Medicine Endocrinology Metabolism and Lipid [address] [place] [address] [place] [address] Paulette Mack, GEOFF 12/31/2024 Telephone [facility] [address] [facility] 7th [place] [address] Axel Bah RN 12/04/2024 10:15 AM CDT Office Visit [facility] Radiation Oncology [address] [facility] [place] [address] Kalpana Cruz NP Ductal carcinoma in situ (DCIS) of left breast 11/27/2024 Telephone [facility] Building [address] [place] [address] Zbigniew Sarmiento MD Physical therapy 11/27/2024 Orders Only [facility] [address] [place] [address] [address] [place] [address] Zbigniew Sarmiento MD Right hip pain (Primary Dx); Aftercare following right hip joint replacement surgery from Last 3 Months Immunizations Immunization Administration Dates Next Due Influenza LAIV (Nasal) 01/30/2020 Influenza, Quadrivalent, Concepcion l Culture-based MDCK, Preservative Free, Antibiotic Free, Intramuscular 03/20/2021 Influenza, Quadrivalent, Hig h Dose, Preservative Free, Intrr 01/30/2020 Influenza, Trivalent, High D ose, Split, Preservative Free, Intramuscular 03/12/2019,02/17/2018,02/16/2018,03/21,03/25/2016,03/31/2015 Influenza, Trivalent, IM (MDV) 03/22/2014,2011 Influenza, Trivalent, Preser vative Free, Intramuscular 04/27/2013 Influenza, Unspecified 02/04/2022 Pfizer SARS-CoV-2 Monovalent Vaccination (12+ Yrs) PURPLE 08/22/2020,08/01/2020 Pneumococcal Polysaccharide PPV23 03/13/2010 Pneumococcal, Unspecified 03/13/2010 Tdap 12/02/2014 ZOSTER LIVE 05/03/2016 Surgical History Surgery Date Site/Laterality Comments BREAST BIOPSY 03/13/2018 Left BREAST BIOPSY 06/06/2017 - 06/05/2018 BUNIONECTOMY 06/06/2007 - 06/05/2008 Bilateral REPLACEMENT TOTAL KNEE 2007 &2010 CARPAL TUNNEL RELEASE 06/06/2015 - 06/05/2016 Bilateral ROTATOR CUFF REPAIR 06/06/2011 - 06/05/2012 THYROIDECTOMY 06/06/2012 - 06/05/2013 OOPHERECTOMY 06/06/2009 - 06/05/2010 CHOLECYSTECTOMY BACK SURGERY 1992 &2001 MASTECTOMY, PARTIAL 08/31/2018 Left COLONOSCOPY Medical History Medical History Date Comments Hypertension Depression Overweight Arthritis Thyroid cancer (HCC) Skin cancer Awareness under anesthesia 2019 state s she was able to feel pain during her mastectomy, unable to speak History of breast cancer 02/23/2021 Family History Medical History Relation Name Comments Kidney disease Father Heart disease Maternal Grandmother No Known Problems Mother Diabetes Sister Relation Name Status Comments Father Maternal Grandmother Mother Paternal Grandfather Sister Social History Tobacco Use Types Packs/Day Years Used Date Smoking Tobacco: Never Smokeless Tobacco: Never Alcohol Use Standard Drinks/Week Comments No 0 (1 standard drink = 0.6 oz pur e alcohol) AUDIT-C Answer Date Recorded Q1: How often do you have a drink containing alcohol? Never 08/27/2024 Q2: How many drinks containi ng alcohol do you have on a typical day when you are drinking? Patient does not drink Q3: How often do you have si x or more drinks on one occasion? Never 08/27/2024 Hunger Vital Sign Answer Date Recorded Within the past 12 months, y ou worried that your food would run out before you got the money to buy more. Never true 01/05/20 25 Within the past 12 months, t he food you bought just didn't last and you didn't have money to get more. Never true 01/04/2025 Personal Safety Answer Date Recorded Have you ever been in or are you currently in a harmful physical or emotional relationship or is someone making you feel afraid or unsafe? Denies 01/04/2025 Comments No Sex and Gender Information Value Date Recorded Sex Assigned at Not on file Legal Sex Female 2:21 AM MANAGER FILTER Gender Identity Not on file Sexual Orientation Not on file Obstetrics History Last Filed Vital Signs Vital Sign Reading Time Taken Comments Blood Pressure 127/85 02/12/2025 2:43 PM CDT Pulse 92 02/12/2025 2:43 PM CDT Temperature 36.1 C (96.9 F) 02/12/2025 2:43 PM CDT Respiratory Rate 16 08/28/2024 8:14 AM CDT Oxygen Saturation 99% 08/28/2024 11:02 AM CDT Inhaled Oxygen Concentration - - Weight 86.9 kg (191 lb 9.6 oz) 02/12/2025 2:43 P M CDT Height 165.1 cm (5' 5) 02/12/2025 2:43 PM CDT Body Mass Index 31.88 02/12/2025 2:43 PM CDT Plan of Treatment Health Maintenance Due Date Last Done Comments Albumin Creatinine Ratio, Urine 1945 Depression Screening 1945 Dilated Eye Exam 1945 Foot Exam 1945 Lipid Panel 1945 Hepatitis B Screening 1962 Well Visit 65+ 2009 Pneumococcal vaccine 65+ (2 of 2 - PCV) 03/13/2011 03/13/2010, 03/13/2010 Zoster Vaccine (1 of 2) 06/28/2016 05/03/2016 DTaP/Tdap/Td Vaccine (2 - Td or Tdap) 12/02/2024 12/02/2014 Covid-19 Vaccine (4 - 2024-2 6 season) 2025 04/01/2021, 08/22/2020, 08/01/2020 Influenza Vaccine (#1) 2025 , 03/20/2021, 01/30/2020, Additional history exists Osteoporosis Screening-Bone Density Scan 07/07/2025 07/07/2023, 06/24/2022, 03/20/2021, Additional history exists Hemoglobin A1C 08/12/2025 02/12/2025, 07/08, 04/19/2023, Additional history exists Fall Risk Assessment 08/28/2025 08/28/2024 eGFR 08/28/2025 08/28/2024, 07/08, 03/23/2024, Additional history exists Medical Devices Implanted Type Area Change Director Device Identifier Shelf Expiration Date Model / Serial / Lot Cage Cage Back Description:Cage in her back implanted at an outside hospital per medical record [employer] Shell Acetabular Trident Ii Tritanium E Od52mm Hip 5 Screw Hole Cluster Sterile 702-04-52e - [id number] Implanted:Qty: 1 on 08/27/2024 by Zbigniew Sarmiento MD at [facility] Other - see comments Right: Hip [employer] [id number] 04/25/2029 702-04-5 2E / / [id number] A [employer] Liner Acetabular Hip Trident X3 40mm Polyethylene 0 Degree Size E 723-00-40e - [id number] Implanted:Qty: 1 on 08/27/2024 by Zbigniew Sarmiento MD at [facility] Other - see comments Right: Hip [employer] [id number] 04/26/2029 723-00-4 0E / / [id number] [employer] Stem Femoral Hip Collared Insignia 38.6k290gt High Offset Size 5 3363-1545 - [id number] Implanted:Qty: 1 on 08/27/2024 by Zbigniew Sarmiento MD at [facility] Other - see comments Right: Hip [employer] [id number] 06/12/2029 7000-660 5 / / [id number] [employer] V40 Hip -2.5mm Offset Goessel Taper Sleeve Adapter Titanium 6519-T-025 - [id number] Implanted:Qty: 1 on 08/27/2024 by Zbigniew Sarmiento MD at [facility] Other - see comments Right: Hip [employer] [id number] 06/10/2029 6519-T-0 25 / / [id number] [employer] 40mm Hip Goessel Taper Head Femoral Biolox Delta 6519-1-040 - [id number] Implanted:Qty: 1 on 08/27/2024 by Zbigniew Sarmiento MD at [facility] Other - see comments Right: Hip [employer] [id number] 05/02/2029 6519-1-0 40 / / [id number] Knee Replacement Bilater al: Knee Description:Bilat knee repla cements from outside hospital per medical record Procedures Procedure Name Priority Date/Time Associated Diagnosis Comments POCT HEMOGLOBIN A1C Routine 02/12/2025 2:54 PM CDT Type 2 diabetes mellitus without complication, without long-term current use of insulin (HCC) POCT GLUCOSE Routine 02/12/2025 2:51 PM CDT Type 2 diabetes mellitus without complication, without long-term current use of insulin (HCC) EGFR Routine 08/28/2024 6:45 AM CDT DEXA AXIAL SKELETON BONE DENSITY 1 OR MORE SITES Schedule Routine, Read Routine (OP Routine) 07/07/2023 9:09 AM MANAGER FILTER Age-related osteoporosis without current pathological fracture from Last 3 Months or Most Recently Relevant to Health Maintenance Results * (ABNORMAL) POCT hemoglobin A1c (02/12/2025 2:54 PM CDT) Pathologist [facility] Hemoglobin A1C, POC 5.8(A) 4.0 - 5.6 % Blood 02/12/2025 2:54 PM CDT us Samira Styles MD POINT OF CARE TEST ORDERABLES F inal Result * POCT glucose (02/12/2025 2:51 PM CDT) Pathologist [facility] Glucose Blood, POC 137 Normal Fasting 70 - 100, Random <200 mg/dL Blood 02/12/2025 2:51 PM CDT us Samira Styles MD POINT OF CARE TEST ORDERABLES F inal Result * (ABNORMAL) eGFR (08/28/2024 6:45 AM CDT) Pathologist [facility] eGFR 29(L) >=60 mL/min/1. 73 m2 Comment: Interpretive Data Reference Interval Normal >/= 90 mL/min/1.73m2 Mildly decreased* 60 - 89 mL/min/1.73m2 Mildly to moderately decreased 45 - 59 mL/min/1.73m2 Moderately to severely decreased 30 - 44 mL/min/1.73m2 Severely decreased 15 - 29 mL/min/1.73m2 Kidney Failure < 15 mL/min/1.73m2 *Relative to young adult level Estimated glomerular filtration rate is determined by the 2020 CKD-EPI equation recommended by the National Kidney Foundation (A Unifying Approach to GFR Estimation: Recommendations of the NKF-ASK Task Force on Reassessing the Inclusion of Race in Diagnosing Kidney Disease, JASN 2020). The CKD-EPI equation should not be used for patients with unstable renal function and has not been validated in children and those over 70. Current interpretive data was last reviewed 2021. Blood 08/28/2024 6:45 AM CDT 08/28/2024 7:43 AM CDT us Zbigniew Sarmiento MD LAB BLOOD ORDERABLES Final Result Performing Organization Address City/State/[facility] Co tx Phone Number [facility] Department [place] [address] * Dexa Axial Skeleton Bone Density 1 or 2 Site (07/07/2023 9:09 AM MANAGER FILTER) Anatomical Region Laterality Modality Body N/A Radiographic Lela ging Narrative 07/07/2023 9:28 AM MANAGER FILTER Patient Name: Halima Griffith Date of : 1945 Date of scan: 07/07/2023 Bone mineral density was performed on a HoloZentila Discovery Densitometer. Based on machine cross-calibration and precision studies the least significant changes of this densitometer is 0.024 g/cm2 at the spine, 0.020 g/cm2 at the total proximal femur, and 0.014g/cm2 at the forearm. HISTORY: This is a 78 y.o. postmenopausal female with a history of breast cancer, osteoporosis, thyroid disease, and vitamin D deficiency. She reports that she has never smoked. She has never used smokeless tobacco. Currently on treatment with calcium, vitamin D, denosumab (Prolia), and thyroid hormone, previously treated with alendronate (Fosamax), aromatase inhibitor, hormone replacement therapy, and diuretics, and current complaint of back pain, neck pain, and leg pain. INDICATIONS: Menopause status, treatment monitoring, history of prior left hip and right wrist fracture, vitamin D deficiency, and history of osteoporosis. FINDINGS: BONE MINERAL DENSITY OF THE LUMBAR SPINE Bone Mineral Density (BMD) of the lumbar spine was measured from L1,L3-L4 and the average density was calculated to be 0.808 gm/cm2. This corresponds to a T-score (standard deviations from the mean of young adults) of -2.2. When compared to the previous study of 06/24/2022 there has been no significant changes in bone density. BONE MINERAL DENSITY OF THE PROXIMAL FEMUR Bone Mineral Density (BMD) of the right hip total was found to be 0.796 gm/cm2. This corresponds to a T-score standard deviations from the mean of young adults of -1.2. Femoral neck is 0.692 gm/cm2 with a T-score (standard deviations from the mean of young adults) of -1.4. When compared to the previous study of 06/24/2022 there has been no significant changes in bone density. BONE MINERAL DENSITY OF THE FOREARM Bone Mineral density (BMD) of the left proximal 1/3 of the radius measures 0.545 gm/cm2. This corresponds to a T-score (standard deviations from the mean of young adults) of -2.5. There is no previous study available for comparison. A forearm bone density study was performed in addition to the routine study because of history of hypercalcemia. SUMMARY: Bone mineral density shows evidence of osteoporosis and marked increase risk of fracture. There has been no significant changes in bone density since previous measurement. L2 excluded from bone mineral density analysis of the lumbar spine because of bone density being more than 1 standard deviation discrepant relative to one adjacent vertebra. Clinical correlation is recommended. ADDITIONAL COMMENTS: Postmenopausal Women and Men Over 50: Diagnostic criteria: Osteoporosis: BMD at or below -2.5 T-score; Osteopenia (low bone mass): BMD between -1.0 and -2.5 T-score. If the patient has a history of a fragility fracture, a fracture that occurred with trauma equivalent to a fall from a standing position or less, then the diagnosis is osteoporosis regardless of bone density. The history and data sections of the bone mineral density scan were prepared by Ghazal Santoro)(Katarzyna)(BD) CBDT who is accredited by the International Society of Clinical Densitometry. The overall patient assessment and scan interpretation were performed by Claudia Cummins MD who is certified by the International Society of Clinical Densitometry. [id number] us Samira Styles MD IMG DXA PROCEDURES Final Result from Last 3 Months or Most Recently Relevant to Health Maintenance Insurance [facility] MEDICARE ADVANTAGE MEDICARE RESEARCH [facility] Address: [address] [address] [place] [address] [facility] MEDICARE ADVANTAGE UHC MEDICARE ADVANTAGE UHC MEDICARE ADVANTAGE UHC MEDICARE ADVANTAGE Advance Directives For more information, please contact: [phone] * Full Code (Latest Code Status on File) Date Activated Date Inactivated Comments 08/27/2024 5:01 PM 08/28/2024 6:19 PM Care Teams Comic Book Writer Relationship Specialty Start Date End Date Azael Schneider MD [address] [place] [address] PCP - General 02/02/18 Saran Martinez MD [address] [facility] [address] [place] [address] Radiation Oncologist Radiation Oncology 10/19/18 Aft, Vashti Mckinley MD PhD [address] [facility] [address] [place] [address] Surgeon Surgical Oncology 10/19/18 Sia White MD [address] [facility] [address] [place] [address] Surgeon Surgical Oncology 10/19/18 Paulette Schulz, PhD [address] [place] [address] Nurse Practitioner Radiation Oncology 10/19/18
--- OUTSIDE RECORDS SUMMARY | 2025-02-19 11:03 | XMS_ITS | Encounter Summary ---
Author Organization [facility] Address [address] [place] [address] Phone Care Team Providers Care Manager Simulation Name Role Phone Azael Schneider MD Primary Care Provider Saran Martinez MD Unavailable AftVashti MD PhD Unavailable [phone] Sia White MD Unavailable [phone] Julia Jones [facility] Unavailable [phone] Paulette Schulz PhD Unavailable Encounter Details Date Type Department Care Team (Latest Contact Info) Description 03/05/2020 Orders Only [facility] Scanning, Provider Social History Tobacco Use Types Packs/Day Years Used Date Smoking Tobacco: Never Smokeless Tobacco: Never Alcohol Use Standard Drinks/Week Comments No 0 (1 standard drink = 0.6 oz pur e alcohol) Comments No Sex and Gender Information Value Date Recorded Sex Assigned at Not on file Legal Sex Female 2:21 AM 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 Gender Identity Not on file Sexual Orientation Not on file documented as of this encounter Plan of Treatment Not on file documented as of this encounter Procedures Procedure Name Priority Date/Time Associated Diagnosis Comments SCAN - LABS 03/05/2020 documented in this encounter Results * SCAN - LABS (03/05/2020) us Provider Scanning Final Result documented in this encounter Visit Diagnoses Not on filedocumented in this encounter Care Teams Manager Simulation Relationship Specialty Start Date End Date Azael Schneider MD [address] [place] [address] PCP - General 02/02/18 Saran Martinez MD [address] [place] [address] Radiation Oncologist Radiation Oncology 10/19/18 AftVashti MD PhD [address] [place] [address] Surgeon Surgical Oncology 10/19/18 Sia White MD [address] [place] [address] Surgeon Surgical Oncology 10/19/18 Julia Jones CNS [address] [place] [address] Nurse Practitioner Certified Clinical Nurse Specialist 10/19/18 06/24/21 Paulette Schulz, PhD [address] [place] [address] Nurse Practitioner Radiation Oncology 10/19/18 documented as of this encounter
--- OUTSIDE RECORDS SUMMARY | 2025-02-19 11:03 | XMS_ITS ---
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 Other Current Plans denosumab (PROLIA) Injection* Plan Start Date:07/01/2022 Plan Provider:Samira Styles MD Linked Problems Osteoporosis without current pathological fracture, unspecified osteoporosis typeAge-related osteoporosis without current pathological fracture Treatment Medications No medications scheduled. Past Treatment and Therapy Plans Oncology Supportive Care Therapy Plan Plan Name Start Date Discontinue Date Treatment Medications Discontinue Reason Plan Provider DENOSUMAB (PROLIA) INJECTION 03/07/2020 03/20/2021 No medications scheduled. Therapy Complete Caroline Duggan MD Specialty Infusion Treatment Plan Name Start Date Discontinue Date Treatment Medications Discontinue Reason Plan Provider ZOLEDRONIC ACID (RECLAST) INFUSION 03/20/2021 03/20/2021 No medications scheduled. Therapy Complete Samira Styles MD Radiation Treatments * Course C2 VR_RT_BREAST 11/07/2018 - 11/09/2018 Treatment Period Energy Fraction Dose Fractions Total Dose Plans Planned VR LLOQ BRST 11/07/2018 - 11/09/2018 850 3 / 2,550 Reference Points Delivered PTV _ 2550 11/07/2018 - 11/09/2018 2,550 Resolved Problems Problem Noted Date Diagnosed Date Resolved Date Aromatase inhibitor use 08/05/202108/04 Hypocalcemia 03/28/2020 03/22/2021 Encounter for monitoring sumaya matase inhibitor therapy 01/05/2019 08/17/2023 Assessment & Plan (01/08/2019 1:35 PM CDT): -predisposes her to bone loss and fractures -management as above
--- OUTSIDE RECORDS SUMMARY | 2025-02-19 11:03 | XMS_ITS | Clinical Summary ---
Author Organization [facility] Address [address] [facility] [place] [place] [address] Care Team Providers Care Records Custodian Name Role Phone Azael Schneider MD Primary Care Provider [phone] Allergies Active Allergy Reactions Criticality Noted Date Comments Propoxyphene Nausea and Vomiting Low 09/14/2018 Medications metFORMIN (GLUCOPHAGE) 500 mg tablet Take 500 mg by mouth daily after supper. Active ferrous sulfate 325 mg (65 mg iron) tablet Take 325 mg by mouth daily. Active losartan (COZAAR) 50 mg tablet Take 50 mg by mouth daily. Active atorvastatin (LIPITOR) 10 mg tablet Take 10 mg by mouth daily at bedtime. Active aspirin (ECOTRIN EC) 81 mg Tablet, Delayed Release (E.C.) Take 81 mg by mouth daily. Active vit B cmplx 3-FA-Vit C-Biotin (RENAVITE-RX RX) 1-60-300 mg-mg-mcg Tablet Take 1 Tablet by mouth daily. 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 Active calcium acetate (PHOSLO) 667 mg tablet Take 1 Tablet by mouth 3 times daily. Active cholecalciferol, vitamin D3, 1,000 unit Take by mouth. Active ACYCLOVIR ORAL Take by mouth. Active Active Problems Problem Noted Date Diagnosed Date Thrombocytosis 09/14/2018 Chronic anemia 09/14/2018 Hyperlipidemia 09/14/2018 Type 2 diabetes mellitus wit hout complication, without long-term current use of insulin 09/14/2018 Benign hypertension 09/14/2018 Family History Medical History Relation Name Comments Liver Disease Father Heart Disease Mother Hypertension Mother Heart Disease Sister 1 Hypertension Sister 1 Other Sister 1 No Known Problems Sister 2 Relation Name Status Comments Father Mother Sister 1 Sister 2 Alive Social History Tobacco Use Types Packs/Day Years Used Date Smoking Tobacco: Never Alcohol Use Standard Drinks/Week Comments Never 0 (1 standard drink = 0.6 oz pur e alcohol) Comments No Sex and Gender Information Value Date Recorded Sex Assigned at Not on file Legal Sex Female 9:15 AM CDT Gender Identity Not on file Sexual Orientation Not on file Last Filed Vital Signs Vital Sign Reading Time Taken Comments Blood Pressure 130/72 12/21/2018 1:20 PM CDT Pulse 97 12/21/2018 1:20 PM CDT Temperature 36.8 C (98.2 F) 12/21/2018 1:20 PM CDT Respiratory Rate 16 12/21/2018 1:20 PM CDT Oxygen Saturation 94% 09/21/2018 1:17 PM CDT Inhaled Oxygen Concentration - - Weight 80.7 kg (178 lb) 12/21/2018 1:20 PM CDT Height 167.6 cm (5' 6) 12/21/2018 1:20 PM CDT Body Mass Index 28.73 12/21/2018 1:20 PM CDT Plan of Treatment Health Maintenance Due Date Last Done Comments DIABETES ANNUAL FOOT EXAM 1962 DIABETES ANNUAL RETINAL EXAM 1962 DIABETES HBA1C Q 6 MONTHS 1962 DIABETES MICROALBUMIN ANNUAL SCREEN 1962 LDL CHOLESTEROL ANNUAL 1962 DTAP/TDAP/TD VACCINES (1 - Tdap) 1963 PNEUMOCOCCAL VACCINE 50+ YEARS (1 of 2 - PCV) 05/07/19 63 ZOSTER VACCINE (1 of 2) 1994 OSTEOPOROSIS SCREENING 2009 RSV VACCINE (60+ or ) (1 - 1-dose 75+ series) 2019 INFLUENZA VACCINE (#1) 2025 Insurance Care Teams Records Custodian Relationship Specialty Start Date End Date Azael Schneider MD [address] [facility] [address] [place] [address] PCP - General Family Practice 08/29/18
--- OUTSIDE RECORDS SUMMARY | 2025-02-19 11:03 | XMS_ITS | Clinical Summary ---
Author Organization [facility] Address [address] [place] [address] Phone Care Team Providers Care Computational Physicist Name Role Phone Azael Schneider MD Primary Care Provider [phone] Allergies Active Allergy Reactions Criticality Noted Date Comments Sven Inhibitors Cough 01/28/2021 Acetaminophen 04/09/2021 Propoxyphene Nausea And Vomiting,Unknown,Vomitin g Low 02/15/2018 Other reaction(s): Unknown Medications acyclovir (ZOVIRAX) 400 MG tablet Take 400 mg by mouth 2 (two) times a day 1 Active anastrozole (ARIMIDEX) 1 MG chemo tablet Take 1 mg by mouth 1 (one) time each day 1 Active atorvastatin (LIPITOR) 10 MG tablet Take 10 mg by mouth every night 1 Active Biotin 10 MG capsule Take by mouth Active calcitriol (ROCALTROL) 0.5 MCG capsule Take by mouth 1 (one) time each day 1 Active Cholecalciferol 50 MCG (1999 UT) capsule 2,000 Units Active cyanocobalamin 500 MCG tablet Take 500 mcg by mouth daily Active ferrous sulfate 325 (65 Fe) MG tablet Take by mouth daily Active folic acid (FOLVITE) 1 MG tablet Take 1,000 mcg by mouth 1 (one) time each day in the morning 1 Active levothyroxine (SYNTHROID) 88 MCG tablet TAKE 1 TABLET BY MOUTH EVERY MORNING BEFORE BREAKFAST 1 Active losartan (COZAAR) 50 MG tablet Take 50 mg by mouth 1 (one) time each day 1 Active methotrexate 2.5 MG tablet TAKE 3 TABLETS BY MOUTH ONCE WEEKLY 9 Active multivitamine, geriatric, (CENTRUM SILVER) tablet Take 1 tablet by mouth 1 (one) time each day Active oxyCODONE (OXY-IR) 5 MG immediate release capsule Take 5 mg by mouth every 6 hours as needed Active gabapentin (NEURONTIN) 300 MG capsule 1 Active calcium citrate (CALCITRATE) 100 mg (475 mg) tablet 475 mg 1 (one) time each day Active Active Problems Problem Noted Date Diagnosed Date Hypercalcemia 03/22/2021 Stage 3b chronic kidney disease 01/28/2021 Papillary thyroid carcinoma 01/08/2019 Overview (01/28/2021): Last Assessment & Plan: -T1NX papillary thyroid carcinoma status post 30 [...] she has a low risk of recurrence Age-related osteoporosis wit hout current pathological fracture 01/05/2019 Overview (01/28/2021): Last Assessment & Plan: -exacerbating by aromatase inhibitor therapy -will continue current calcium and vitamin D supplementation -we discussed that she needs antiresorptive therapy to prevent further bone loss and fractures but she needs to have dental work done first -will start Prolia after dental work is completed -we discussed the importance of weight bearing exercise Chronic anemia 09/14/2018 Hyperlipidemia 09/14/2018 Intraductal carcinoma in situ of left breast Type 2 diabetes mellitus without complication Essential (primary) hypertension 03/17/2015 Resolved Problems Problem Noted Date Diagnosed Date Resolved Date Abnormal result of kidney function study 03/17/2015 01/28/2021 Immunizations Immunization Administration Dates Next Due Influenza (IM) Preservative Free 04/27/2013 Influenza Split High Dose Preservative Free IM 03/12/2019,02/17/2018,02/16/2018,2016,03/25/2016,03/31/2015 Influenza TIV (IM) 03/22/2014,02/25/2012 Influenza, Injectable, Mdck, Preservative Free, Quadrivalt 03/20/2021 Influenza, Quadrivalent 01/30/2020 Pfizer Sars-cov-2 Vaccination 08/22/2020, 021 Pneumococcal, Unspecified 03/13/2010 Tdap 12/02/2014 Zoster 05/03/2016 Family History Medical History Relation Comments Kidney disease Neg Hx Kidney stone Neg Hx Social History Tobacco Use Types Packs/Day Years Used Date Smoking Tobacco: Never Smokeless Tobacco: Never Alcohol Use Standard Drinks/Week Comments Not Currently 0 (1 standard drink = 0.6 oz pur e alcohol) Comments Unknown Sex and Gender Information Value Date Recorded Sex Assigned at Not on file Legal Sex Female 9:25 AM MST Gender Identity Not on file Sexual Orientation Not on file Last Filed Vital Signs Vital Sign Reading Time Taken Comments Blood Pressure 122/70 04/09/2021 10:11 AM CDT Pulse 72 04/09/2021 10:11 AM CDT Temperature 36.2 C (97.2 F) 04/09/2021 10:11 AM CDT Respiratory Rate - - Oxygen Saturation - - Inhaled Oxygen Concentration - - Weight 93.9 kg (207 lb) 04/09/2021 10:11 AM CDT Height 170.2 cm (5' 7) 04/09/2021 10:11 AM CDT Body Mass Index 32.42 04/09/2021 10:11 AM CDT Plan of Treatment Health Maintenance Due Date Last Done Comments Pneumococcal PPSV23/PCV13 65 + Years / Low and Medium Risk (1 of 2 - PCV) 1994 COVID-19 Vaccine (3 - 2024-2 6 season) 2025 08/22/2020, 08/01/2020 Influenza Vaccine (#1) 2025 , 03/22/2014, 04/27/2013, Additional history exists Insurance [employer] MEDICARE Care Teams Computational Physicist Relationship Specialty Start Date End Date Azael Schneider MD [address] [facility] [address] [facility] [address] [place] [id number] PCP - General Internal Medicine 01/14/21
--- OUTSIDE RECORDS SUMMARY | 2025-02-19 11:03 | XMS_ITS | Clinical Summary ---
Author Organization 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 Gender Identity Not on file Sexual Orientation Not on file Plan of Treatment Health Maintenance Due Date Last Done Comments Hepatitis C Virus (HCV) Screening 1945 TdaP Immunization 1945 Pneumococcal Immunization (5 0+ years) (1 of 1 - PCV) 1994 Zoster Immunization (1 of 2) 1994 Respiratory Syncytial Virus (RSV) Immunization (Adult) (1 - 1-dose 75+ series) 2019 SARS-COV-2 Immunization ( - season) 2024 Influenza Immunization (#1) 2025 Hepatitis B Immunization Aged Out No longer eligible based on patient's age to complete this topic Human Papillomavirus (HPV) Immunization Aged Out No longer eligible b ased on patient's age to complete this topic Meningococcal Immunization (ACWY) Aged Out No longer eligible based on patient's age to complete this topic Rotavirus Immunization Aged Out No lo nger eligible based on patient's age to complete this topic Care Teams Implant Coordinator Relationship Specialty Start Date End Date Azael Schneider MD [address] [place] [address] PCP - General Family Medicine 06/13/18
--- OUTSIDE RECORDS SUMMARY | 2025-02-19 11:03 | XMS_ITS | Encounter Summary ---
Author Organization [facility] [place] Address [address] [place] [address] Phone Care Team Providers Care Ruling Technician Name Role Phone Azael Schneider MD Primary Care Provider Saran Martinez MD Unavailable AftVashti MD PhD Unavailable [phone] Sia White MD Unavailable [phone] Julia Jones [facility] Unavailable [phone] Paulette Schulz PhD Unavailable [phone] Encounter Details Date Type Department Care Team (Latest Contact Info) Description 09/25/2020 Orders Only [facility] Scanning, Provider Social History Tobacco Use Types Packs/Day Years Used Date Smoking Tobacco: Never Smokeless Tobacco: Never Alcohol Use Standard Drinks/Week Comments No 0 (1 standard drink = 0.6 oz pur e alcohol) Comments No Sex and Gender Information Value Date Recorded Sex Assigned at Not on file 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 Gender Identity Not on file Sexual Orientation Not on file documented as of this encounter Plan of Treatment Not on file documented as of this encounter Procedures Procedure Name Priority Date/Time Associated Diagnosis Comments SCAN - LABS 09/25/2020 documented in this encounter Results * SCAN - LABS (09/25/2020) us Provider Scanning Final Result documented in this encounter Visit Diagnoses Not on filedocumented in this encounter Care Teams Ruling Technician Relationship Specialty Start Date End Date Azael Schneider MD [address] [place] [address] PCP - General 02/02/18 Saran Martinez MD [address] [place] [address] Radiation Oncologist Radiation Oncology 10/19/18 Aft, Vashti Mckinley MD PhD [address] [place] [address] Surgeon Surgical Oncology 10/19/18 Sia White MD [address] [place] [address] Surgeon Surgical Oncology 10/19/18 Julia Jones CNS [address] [place] [address] Nurse Practitioner Certified Clinical Nurse Specialist 10/19/18 06/24/21 Paulette Schulz, PhD [address] [place] [address] Nurse Practitioner Radiation Oncology 10/19/18 documented as of this encounter
--- OUTSIDE RECORDS SUMMARY | 2025-02-19 11:03 | XMS_ITS | Encounter Summary ---
Author Organization [facility] Address [address] [place] [address] Phone Care Team Providers Care Mechanical Engineer Name Role Phone Azael Schneider MD Primary Care Provider Saran Martinez MD Unavailable AftVashti MD PhD Unavailable [phone] Sia White MD Unavailable [phone] Julia Jones [facility] Unavailable [phone] Paulette Schulz PhD Unavailable [phone] Encounter Details Date Type Department Care Team (Latest Contact Info) Description 05/27/2020 Orders Only [facility] Scanning, Provider Social History Tobacco Use Types Packs/Day Years Used Date Smoking Tobacco: Never Smokeless Tobacco: Never Alcohol Use Standard Drinks/Week Comments No 0 (1 standard drink = 0.6 oz pur e alcohol) Comments No Sex and Gender Information Value Date Recorded Sex Assigned at Not on file 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 Gender Identity Not on file Sexual Orientation Not on file documented as of this encounter Plan of Treatment Not on file documented as of this encounter Procedures Procedure Name Priority Date/Time Associated Diagnosis Comments SCAN - LABS 05/27/2020 documented in this encounter Results * SCAN - LABS (05/27/2020) us Provider Scanning Final Result documented in this encounter Visit Diagnoses Not on filedocumented in this encounter Care Teams Mechanical Engineer Relationship Specialty Start Date End Date Azael Schneider MD [address] [place] [address] PCP - General 02/02/18 Saran Martinez MD [address] [place] [address] Radiation Oncologist Radiation Oncology 10/19/18 AftVashti MD PhD [address] [place] [address] Surgeon Surgical Oncology 10/19/18 Sia White MD [address] [place] [address] Surgeon Surgical Oncology 10/19/18 Julia Jones CNS [address] [place] [address] Nurse Practitioner Certified Clinical Nurse Specialist 10/19/18 06/24/21 Paulette Schulz, PhD [address] [place] [address] Nurse Practitioner Radiation Oncology 10/19/18 documented as of this encounter
--- OUTSIDE RECORDS SUMMARY | 2025-02-19 11:03 | XMS_ITS | Clinical Summary ---
Author Organization [facility] Address [address] [place] [address] Care Team Providers Care Accounting Tutor Name Role Phone Unavailable Primary Care Provider Unavailabl e Allergies Active Allergy Reactions Criticality Noted Date Comments Propoxyphene Unknown 06/13/2018 Medications acetaminophen 325 MG tablet Take 325 mg by mouth every 6 (six) hours as needed for Pain. Active amlodipine 5 MG tablet Take 5 mg by mouth daily. Active hypromellose 0.5 % ophthalmic solution 1 drop as needed. Active aspirin EC (ASPIRIN) 81 MG EC tablet Take 81 mg by mouth daily. Active bisacodyl [address] 10 mg rectally daily as needed for Constipation. Active Vitamin D, Ergocalciferol, 91024 units capsule Take 1 capsule by mouth once a week. for 12 weeks Active potassium & sodium phosphates 280-160-250 MG Pack Active saline, FLEET, adult 7-19 GM/118ML Enema Place 1 enema rectally daily as needed. Active TF diabetic w/Fiber Liquid 25 mL/hr by Per G Tube route. Active lansoprazole 30 MG capsule Take 30 mg by mouth daily. Active levothyroxine 112 MCG tablet Take 112 mcg by mouth every morning. Active metoclopramide 1 mg/mL 5 MG/5ML solution Take by mouth 4 (four) times daily before meals and nightly. Active magnesium hydroxide 400 MG/5ML suspension Take by mouth daily as needed for Constipation. Active oxyCODONE 5 MG capsule Take 5 mg by mouth every 6 (six) hours as needed. Active calcium carbonate-vitami n D 500-200 MG-UNIT Tab tablet Take 1 tablet by mouth daily. Active tolnaftate 1 % powder Apply topically 2 (two) times daily. Active Active Problems No known active problems Social History Tobacco Use Types Packs/Day Years Used Date Smoking Tobacco: Never Assessed Comments Unknown Sex and Gender Information Value Date Recorded Sex Assigned at Not on file Legal Sex Female 6:53 PM CDT Gender Identity Not on file Sexual Orientation Not on file Last Filed Vital Signs Vital Sign Reading Time Taken Comments Blood Pressure 130/68 06/13/2018 10:00 AM MANAGER OPERATIONAL Pulse 70 06/13/2018 10:00 AM MANAGER OPERATIONAL Temperature 36.1 C (97 F) 06/13/2018 10:00 AM MANAGER OPERATIONAL Respiratory Rate 20 06/13/2018 10:00 AM MANAGER OPERATIONAL Oxygen Saturation 96% 06/13/2018 10:00 AM MANAGER OPERATIONAL Inhaled Oxygen Concentration - - Weight 85.3 kg (188 lb) 06/13/2018 10:00 AM MANAGER OPERATIONAL Height - - Body Mass Index - - Plan of Treatment Health Maintenance Due Date Last Done Comments DTaP, Tdap and Td Vaccines ( 1 - Tdap) 1963 Pneumococcal Vaccine: 50+ Ye ars (1 of 1 - PCV) 1994 Zoster Vaccines (1 of 2) 1994 Annual Medicare Wellness Visit 2009 Dexa Scan (General) 2009 RSV Immunization or 60+ Years (1 - 1-dose 75+ series) 2019 COVID-19 Vaccine ( - 2023-2 5 season) 2025 Meningococcal B Vaccine Aged Out No l onger eligible based on patient's age to complete this topic Meningococcal Vaccine Aged Out No hans jocelyne eligible based on patient's age to complete this topic RSV Immunizations Under 20 Months Aged Out No longer eligible based on patient's age to complete this topic Insurance MED [employer]PLACE [facility] [place] [address]
--- OUTSIDE RECORDS SUMMARY | 2025-02-19 11:03 | XMS_ITS | Encounter Summary ---
Author Organization [facility] Address [address] [place] [address] Phone Care Team Providers Care Network Admin Name Role Phone Chari Montes MD Primary Care Provider [phone] Patt French Primary Care Provider UnavailPatt Snowden Primary Care Provider Unavaila Azael Barron MD Primary Care Provider Saran Martinez MD Unavailable Vashti Girard MD PhD Unavailable [phone] Sia White MD Unavailable [phone] Julia Jones TRIMMER MACHINE OPERATOR Unavailable Paulette Schulz PhD Unavailable [phone] Encounter Details Date Type Department Care Team (Latest Contact Info) Description 02/10/2012 Orders Only [facility] Scanning, Provider Social History Tobacco Use Types Packs/Day Years Used Date Smoking Tobacco: Never Assessed Comments Unknown Sex and Gender Information Value Date Recorded Sex Assigned at Not on file 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 Gender Identity Not on file Sexual Orientation Not on file documented as of this encounter Plan of Treatment Not on file documented as of this encounter Procedures Procedure Name Priority Date/Time Associated Diagnosis Comments SCAN - PATHOLOGY 02/10/2012 documented in this encounter Results * SCAN - PATHOLOGY (02/10/2012) us Provider Scanning Final Result documented in this encounter Visit Diagnoses Not on filedocumented in this encounter Care Teams Network Admin Relationship Specialty Start Date End Date Chari Montes MD [address] [address] PCP - General 08/23/11 02/02/17 Patt French [address] [address] PCP - General 06/05/17 02/01/18 Patt French [address] [address] PCP - General 02/03/17 06/04/17 Azael Schneider MD [address] [place] [address] PCP - General 02/02/18 Saran Martinez MD [address] [facility] [address] [place] [address] Radiation Oncologist Radiation Oncology 10/19/18 Aft, Vashti Mckinley MD PhD [address] [facility] [address] [place] [address] Surgeon Surgical Oncology 10/19/18 Sia White MD [address] [facility] [address] [place] [address] Surgeon Surgical Oncology 10/19/18 Julia Jones CNS [address] [facility] [address] [place] [address] Nurse Practitioner Certified Clinical Nurse Specialist 10/19/18 06/24/21 Paulette Schulz, PhD [address] [facility] [address] [place] [address] Nurse Practitioner Radiation Oncology 10/19/18 documented as of this encounter
[2025-02-19] MEDS: dexAMETHasone SOD PHOS INJ 10 MG/ML 1 ML VIAL IM (11:04)
[2025-02-19 11:08] VITALS: BP 130/69; PULSE 74; RESP 13; O2SAT 97
[2025-02-19 11:13] VITALS: BP 135/72; PULSE 77; RESP 16; O2SAT 100
== END 2025-02-19 11:28 | disposition home or self-care (01) ==
PROVIDERS: PCP Family Medicine; Visit Provider Anesthesiology Pain Medicine
PROC: (CPT G0260; principal; 2025-02-19 10:30)
DX: M46.1 Sacroiliitis, not elsewhere classified (principal)
CPT/HCPCS: G0260; 27096; 99199; J1100

== ENCOUNTER 2025-05-27 10:32 | Outpatient (CLI) | payer MEDICARE, SELFPAY ==
--- NOTE | ~2025-05-27 | XR_ITS ---
XR chest 2V 05/27/2025 11:12 Indication: Limited range of motion Procedure: 2 view chest Comparison: Comparison to multiple prior studies sequentially, with oldest reviewed study dated 05/24/2019. Findings: Borderline heart size. No focal air space disease, pulmonary edema, pleural effusion or suspected pneumothorax. 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 Calcified granuloma left apex. Impression: 1: No acute cardiopulmonary disease. Reviewed, dictated and finalized at location O. R SOFTENER SERVICE SUPERVISOR Impression: 1: No acute cardiopulmonary disease.
== END 2025-05-27 10:33 | disposition home or self-care (01) ==
LOC: MICIMG 10:33
PROVIDERS: PCP Family Medicine; Visit Provider Physician Assistant
DX: R06.09 Other forms of dyspnea (principal)
CPT/HCPCS: 71046